=== PATIENT | male | born 1950 | race Caucasian/White ===

== ENCOUNTER 2016-10-02 18:53 | Observation (INO) | payer MEDICARE, OTHER ==
[2016-10-02] MEDS ORDERED: NITROGLYCERIN 0.4 MG 25 EA TAB SL ONE ×3 (19:24→19:31)
[2016-10-02] MEDS ORDERED: ASPIRIN TABLET 325 MG TAB PO ONE (19:31)
--- NOTE | 2016-10-02 21:21 | ED.PDOC ---
History of Present Illness - General Chief Complaint: Cardiovascular Problem Stated Complaint: palpitations Time Seen by Provider: 10/02/16 19:02 Source: patient Exam Limitations: no limitations - History of Present Illness Initial Comments: the patient is a 66-year-old male presenting to the emergency room secondary to symptoms of palpitations with concurrent shortness of breath and some mild chest discomfort as well when it was at its worst. He has a long- standing history of atrial fibrillation with intermittent episodes of RVR and atrial flutter. He has had shortness of breath and chest discomfort with these episodes in the past. He recently had his Cardizem dose increased. He is followed by Dr. Faith. He was not having any symptoms prior. He has responded well historically to calcium channel blockers. He has never had to be electrically cardioverted according to him. Timing/Duration: 1-3 hours Severity: moderate Improving Factors: immobilization Worsening Factors: movement Associated Symptoms: chest pain, shortness of breath Allergies/Adverse Reactions: Allergies Penicillins Allergy (Verified 08/03/16 15:21) Rash Home Medications: Ambulatory Orders Aspirin [Baby Aspirin] 81 mg PO BEDTIME 10/03/14 Atorvastatin Calcium [Lipitor] 80 mg PO BEDTIME 10/03/14 Sotalol HCl [Betapace] 80 mg PO BID 10/03/14 Metformin HCl 500 mg PO DAILY 06/18/16 Diltiazem HCl Coated Beads [Cardizem Cd] 180 mg PO DAILY #30 cap 06/19/16 Lisinopril 2.5 mg PO BID 08/03/16 Eloquist 10/02/16 Review of Systems - Review of Systems Constitutional: States: malaise EENTM: States: no symptoms reported Respiratory: States: short of breath Cardiology: States: chest pain - mild, palpitations Gastrointestinal/Abdominal: States: no symptoms reported Genitourinary: States: no symptoms reported Musculoskeletal: States: no symptoms reported Skin: States: no symptoms reported Neurological: States: no symptoms reported Endocrine: States: no symptoms reported All other Systems: No Change from Baseline Past Medical History (General) - Patient Medical History Hx Seizures: No Hx Stroke: No Hx Dementia: No Hx Asthma: No Hx of COPD: No Hx Cardiac Disorders: Yes - high cholesterol, a-fib Hx Congestive Heart Failure: No Hx Pacemaker: No Hx Hypertension: Yes Hx Thyroid Disease: No Hx Diabetes: Yes Hx Gastroesophageal Reflux: No Hx Renal Disease: No Hx Cancer: No Hx of HIV: No Hx Hepatitis C: No Hx MRSA: No Surgical History: appendectomy - Vaccination History Hx Tetanus, Diphtheria Vaccination: Yes Hx Influenza Vaccination: No Hx Pneumococcal Vaccination: Yes - 2013 - Social History Hx Tobacco Use: Yes - Quit 2012 Hx Alcohol Use: No Hx Substance Use: No Hx Substance Use Treatment: No Hx Depression: No Hx Physical Abuse: No Hx Emotional Abuse: No - Female History Patient : No Family Medical History - Family History Mother Family History: No Known Living Status: Age at (years of age): 83 Cause of : lack of will to thrive Physical Exam - Physical Exam General Appearance: Alert, Anxious Eye Exam: bilateral normal Ears, Nose, Throat: normal ENT inspection, normal pharynx Neck: full range of motion, supple, normal inspection Respiratory: chest non-tender, lungs clear, normal breath sounds, no respiratory distress, no accessory muscle use Cardiovascular/Chest: normal peripheral pulses, no edema, tachycardia, irregularly irregular Peripheral Pulses: radial,right: 2+, radial,left: 2+ Gastrointestinal/Abdominal: non tender, soft Rectal Exam: deferred Back Exam: normal inspection Extremity: normal range of motion, non-tender, normal inspection, no pedal edema , normal capillary refill Neurologic: alert, normal mood/affect, oriented x 3 Skin Exam: normal color Comments: Vital Signs - 24 hr 10/02/16 10/02/16 10/02/16 18:55 19:07 19:13 Temperature 98.5 F Pulse Rate [ 114 H 118 H Apical] Respiratory 20 Rate Blood Pressure 135/89 [Left Arm] O2 Sat by Pulse 95 95 Oximetry heart rates have slowed down from the 140s to the 90s on average. Chest x-ray shows no overt infiltrate or pneumothorax. Mild cardiomegaly. EKG shows atrial flutter with rapid ventricular rate. There are Q waves in inferior leads as well as significant axis shift from baseline. This EKG is consistent with previous EKG from May. No acute ST segment changes noted in comparison. Laboratory Tests 10/02/16 19:45 WBC 8.8 RBC 4.99 Hgb 14.2 Hct 42.1 MCV 84.4 MCH 28.4 MCHC 33.6 RDW 14.5 Plt Count 181 MPV 8.5 Absolute Neuts (auto) 5.00 Absolute Lymphs (auto) 2.70 Absolute Monos (auto) 0.80 Absolute Eos (auto) 0.20 Absolute Basos (auto) 0.10 Neutrophils % 57.1 Lymphocytes % 30.3 Monocytes % 9.3 H Eosinophils % 2.6 Basophils % 0.7 PT 11.7 INR 1.040 PTT (SP) 30.0 Sodium 140 Potassium 3.4 L Chloride 108 Carbon Dioxide 24 Anion Gap 11.4 L BUN 13 Creatinine 0.89 BUN/Creatinine Ratio 14.6 Random Glucose 161 H Serum Osmolality 283.0 Calcium 8.6 Magnesium 2.0 Total Bilirubin 0.5 AST 22 ALT 33 Alkaline Phosphatase 96 Creatine Kinase 37 L CK-MB (CK-2) 2.5 CK-MB (CK-2) % Not Reportable Troponin I 0.02 B-Natriuretic Peptide 282.0 H* Serum Total Protein 6.4 Albumin 3.6 Globulin 2.8 Albumin/Globulin Ratio 1.3 Progress - Progress Progress: 10/02/16 21:22 the patient is a 66-year-old male presenting with atrial flutter with rapid ventricular rate. This is a recurrent issue for this patient and he was dosed with IV Cardizem along with his evening doses of oral Cardizem and sotalol. Rate control has significantly improved. He is still in atrial flutter at this time and will be admitted for further management. Symptoms of shortness of breath and chest discomfort have resolved. Will need further cardiac enzymes checked. Continue oxygen for now. Holding on more potent blood thinners secondary to history of GI bleed in the past. Critical care time on this patient spent excluding other billable procedures 30 minutes. Departure - Departure Clinical Impression: Atrial flutter with rapid ventricular response Disposition: Admit Patient Home Medications: Ambulatory Orders Aspirin [Baby Aspirin] 81 mg PO BEDTIME 10/03/14 Atorvastatin Calcium [Lipitor] 80 mg PO BEDTIME 10/03/14 Sotalol HCl [Betapace] 80 mg PO BID 10/03/14 Metformin HCl 500 mg PO DAILY 06/18/16 Diltiazem HCl Coated Beads [Cardizem Cd] 180 mg PO DAILY #30 cap 06/19/16 Lisinopril 2.5 mg PO BID 08/03/16 Eloquist 10/02/16 Decision To Admit - Decistion To Admit Decision to Admit Reason: Medical Nature Decision to Admit Date: 10/02/16 Decision to Admit Time: 21:24
--- NOTE | 2016-10-02 21:35 | RAD ---
PROCEDURE: XR CHEST 1 VIEW HISTORY: afib with rvr COMPARISON: 08/03/2016 TECHNIQUE: Single projection of the chest was done. FINDINGS: The lung anderson are well inflated . There are no discrete airspace infiltrates, pneumothoraces or pleural effusions. The pulmonary vascularity is normal. The cardiomediastinal contour is unremarkable . IMPRESSION: There is no acute pleural-parenchymal process seen in the imaged lung anderson. 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
[2016-10-02] MEDS ORDERED: diltiaZEM HCL CD 180 MG CAP PO ONE (21:41)
[2016-10-02] MEDS ORDERED: SOTALOL 80 MG TAB PO ONE (21:41)
[2016-10-02] MEDS ORDERED: SODIUM CHLORIDE 0.9% (FLUSH) 10 ML SYG IV PRN (21:46)
[2016-10-02] MEDS ORDERED: MAGNESIUM HYDROXIDE 30 ML UD PO PRN (21:46)
[2016-10-02] MEDS ORDERED: TEMAZEPAM 15 MG CAP PO PRN (21:46)
[2016-10-02] MEDS ORDERED: HYDROcodone 5MG/APAP 325MG 1 EA TAB PO PRN (21:46)
[2016-10-02] MEDS ORDERED: GLUCAGON INJ 1 MG VIAL SUBCU PRN (21:57)
[2016-10-02] MEDS ORDERED: DEXTROSE 50% 25 GM/50 ML SYG IV PRN (21:57)
[2016-10-02] MEDS ORDERED: POTASSIUM CHLORIDE 10 MEQ TAB PO SCH (22:00)
[2016-10-02] MEDS ORDERED: IV SET AND CAP CHANGE INJ INJ SCH (22:00)
--- NOTE | 2016-10-02 22:49 | HP ---
HISTORY OF PRESENT ILLNESS: This 66-year-old, white male is placed in the hospital for overnight observation because of an acute exacerbation of a rapid atrial fibrillation with associated shortness of breath and chest tightness, feeling like something was going to explode in his chest. He was given nitroglycerin in the Emergency Room which resulted in fairly significant headache, but the discomfort in his chest also significantly improved as the pulse was reduced in speed from 140 down to less than 100 with Cardizem IV. His oral treatment program was initiated again at the h.s. dose and will be observed overnight with modification of the program in an attempt to prevent this from happening. He has had increasing episodes of rapid atrial fibrillation. Most recently he has had an admission to the hospital on . He was in the Emergency Room with rapid atrial fibrillation on 08/03/16 and required Cardizem infusion and was sent to [facility]. This evenings episode occurred spontaneously at home and now he is feeling better after initial rate control, but will require ongoing medication and monitoring to prevent any unforeseen consequences or complications. He was placed in the hospital overnight for observation on telemetry with increased dosings of oral Cardizem and continued observation. PAST MEDICAL HISTORY: 1. Recurring atrial fibrillation with rapid ventricular response and/or atrial flutter. 2. Coronary artery disease. 3. Hyperlipidemia. 4. Hypertension. 5. Myocardial infarction on two occasions. 6. History of benign prostatic hypertrophy. 7. Diabetes mellitus, type 2, on oral therapy. 8. History of negative upper endoscopy with GI bleeding noted. PAST SURGICAL HISTORY: 1. Appendectomy. 2. Denture removal. 3. Coronary artery stenting placed with 5 stents with his last echocardiogram in 2013 showing an ejection fraction of 50% with mild left atrial enlargement. MEDICATIONS: Please refer to nursing notes for a list of verified medications taken by the patient at home. ALLERGIES: PENICILLIN. CODE STATUS: Full code. SOCIAL HISTORY: He is retired. He is and lives in [place]. He quit smoking in 2010 and quit drinking also in 2010. REVIEW OF SYSTEMS: GENERAL: No significant weight change, fever or chills. HEENT: No significant hearing or visual disturbances. RESPIRATORY: Shortness of breath noted with his current episode of rapid pulse. CARDIAC: History of recurring atrial flutter/fibrillation with his current episode still being treated in the Emergency Room. GASTROINTESTINAL: No nausea, vomiting, diarrhea noted. NEUROLOGIC: Headache after the nitroglycerin. Otherwise, no focal weakness. PHYSICAL EXAMINATION: VITAL SIGNS: Afebrile. Pulse up to 140s, down to 90 after Cardizem. Blood pressure 135/89. Room air saturation 95%. Weight 101.15 kg. GENERAL: The patient is in no acute distress, able to talk quite clearly. His is also present to assist with the history. The patient is lying on his left side in the bed. He is feeling somewhat improved as his pulse has returned to a slower rate. HEENT: Unremarkable. NECK: Supple. LUNGS: Generally clear. HEART: Tones have irregularities with rate ranging between 140s down to under 100. Atrial flutter noted on EKG. No significant murmurs or gallops evident. ABDOMEN: Soft with no organomegaly, masses or tenderness. EXTREMITIES: Fairly well formed with good muscle tone. NEUROLOGIC: No focal neurologic deficits. The patient is awake, alert, oriented and communicative. LABORATORY: Hemoglobin 14.2, white count 8,800. INR 1.04 on Eliquis. Chemistries show potassium 3.4 with potassium supplements to be initiated. Creatinine 0.89, BUN 13, glucose slightly elevated at 161, liver enzymes normal. Troponin 0.02. Beta natriuretic peptide slightly elevated at 282. Albumin 3.6. Urinalysis pending. No cultures obtained. Chest x-ray shows no acute findings. EKG shows significant rapid atrial flutter with rapid ventricular response. ASSESSMENT: 1. Chronic atrial fibrillation with an acute exacerbation with rapid ventricular response with rates in the 140s, symptomatic with chest discomfort and dyspnea. 2. Hypokalemia, requiring supplementation. 3. Diabetes mellitus, type 2, on oral therapy. 4. History of coronary artery disease, must rule out underlying ischemic coronary disease. 5. History of hyperlipidemia. 6. History of benign prostatic hypertrophy. PLAN: The patient will be observed overnight with increased Cardizem CD to 120 b.i.d. instead of 180 at h.s. His atrial flutter appears to primarily start at a similar time which is before he takes his evening dose, so we will split the dose into 120 twice daily with a total of 240 and observe. Continue with Eliquis 5 mg b.i.d. and Sotalol 80 mg b.i.d. with his evening dose being given while still in the Emergency Room. Observe closely and reevaluate in the morning. Anticipate sending home with followup with Dr. Clarke and Dr. Galo if stable. #[id number] [facility]
[2016-10-02] MEDS: LEVALBUTEROL NEBS 0.63 MG/3 ML VIAL INH SCH (23:42)
[2016-10-02] MEDS: APIXABAN 2.5 MG TAB PO SCH (23:42)
[2016-10-02] MEDS: SODIUM CHLORIDE 0.9% (FLUSH) 10 ML SYG IV SCH (23:43)
[2016-10-03] MEDS ORDERED: OMEPRAZOLE CAP 20 MG CAP PO SCH (06:30)
[2016-10-03] MEDS ORDERED: INSULIN LISPRO 100 UNITS/ML PEN SUBCU SCH (07:00)
[2016-10-03] MEDS ORDERED: SODIUM CHLORIDE 0.9% 10 ML VIAL IV PRN (07:56)
[2016-10-03] MEDS: LEVALBUTEROL NEBS 0.63 MG/3 ML VIAL INH SCH (08:24)
[2016-10-03] MEDS ORDERED: LISINOPRIL 5 MG TAB PO SCH (09:00)
[2016-10-03] MEDS ORDERED: POTASSIUM CHLORIDE 10 MEQ TAB PO SCH ×2 (09:00→17:00)
[2016-10-03] MEDS ORDERED: SOTALOL 80 MG TAB PO SCH ×2 (09:00)
[2016-10-03] MEDS ORDERED: diltiaZEM HCL CD 180 MG CAP PO SCH (09:00)
[2016-10-03] MEDS ORDERED: ASPIRIN (CHEWABLE) 81 MG TAB PO SCH (09:00)
[2016-10-03] MEDS: APIXABAN 2.5 MG TAB PO SCH (09:32)
[2016-10-03] MEDS: SODIUM CHLORIDE 0.9% (FLUSH) 10 ML SYG IV SCH (09:39)
--- NOTE | 2016-10-03 11:20 | DS ---
DISCHARGE DIAGNOSIS: 1. Chronic atrial fibrillation/flutter with an acute exacerbation with rapid ventricular response with rates in the 140s, symptomatic with chest discomfort and dyspnea. 2. Hypokalemia, showing improvement with supplementation. 3. Chronic diabetes mellitus on oral therapy. 4. History of coronary artery disease, must rule out underlying ischemic coronary disease with slight elevation in troponin noted with observation in cardiology clinic to continue. 5. History of hyperlipidemia. 6. History of benign prostatic hypertrophy. HISTORY OF PRESENT ILLNESS: This 66-year-old, white male was placed in the hospital for overnight observation because of acute onset of rapid pulse with associated weakness and mild chest discomfort. He was found in the Emergency Room to have an acute atrial flutter/fibrillation with rapid ventricular response responding to Cardizem IV and subsequently restarted on his oral Cardizem and Sotalol treatment program. His Cardizem was up to 180 mg once a day at bedtime, which was changed to 120 mg twice a day to help prevent significant medication justin possibly contributing to some of his symptom complex. The patient is being followed closely by [facility] and followup with continue. LABORATORY: White count normal at 8,800, hemoglobin 14.2. INR 1.04 on Eliquis. Chemistries show potassium 3.4 after supplementation up to 4.6. BUN 13, creatinine 0.89. Glucose 134 on discharge with hemoglobin A1c 6.7. Calcium 8.8. Liver enzymes normal. Troponin 0.02 on admission and 0.06 the next morning with CK remaining normal. Beta natriuretic peptide slightly elevated at 282. Albumin 3.6, TSH 0.96. No cultures obtained. Chest x-ray in the Emergency Room showed no acute process. EKG did show rapid ventricular response with an underlying atrial flutter/fibrillation pattern. HOSPITAL COURSE: The patient was feeling much improved at the time of discharge and was very willing to continue with outpatient followup and management. When his pulse is fast, it makes him feel poorly and his rate control is a little better with the alteration in his medication program with close cardiac followup necessary. Condition discussed with Dr. Faith in [place] before discharge. PLAN: Discharge home with followup with Dr. Faith next 10/10/16, at 2 PM. He is to see Dr. Clarke afterwards in followup as well. Observe his pulse rate closely. Change the Cardizem CD from 180 mg at bedtime to a new prescription of 120 mg twice daily. Return if not improving. Continue other home medications. Close followup with Dr. Clarke necessary. #[id number] [facility]
[2016-10-03 12:23] VITALS: BP 136/71; TEMP 97.5; O2SAT 94
--- NOTE | 2016-10-16 00:10 | RAD ---
PROCEDURE: XR CHEST 1 VIEW HISTORY: afib with rvr COMPARISON: 08/03/2016 TECHNIQUE: Single projection of the chest was done. FINDINGS: The lung anderson are well inflated . There are no discrete airspace infiltrates, pneumothoraces or pleural effusions. The pulmonary vascularity is normal. The cardiomediastinal contour is unremarkable . IMPRESSION: There is no acute pleural-parenchymal process seen in the imaged lung anderson. 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
== END 2016-10-03 11:15 | disposition home or self-care (01) ==
LOC: ER 18:53 → MS 22:48
PROVIDERS: ADMIT Emergency Medicine; ATTEND Emergency Medicine
DX: I48.2 Chronic atrial fibrillation (principal); I48.92 Unspecified atrial flutter; R06.02 Shortness of breath; E87.6 Hypokalemia; E11.9 Type 2 diabetes mellitus without complications; I25.10 Atherosclerotic heart disease of native coronary artery without angina pectoris; E78.5 Hyperlipidemia, unspecified; N40.0 Benign prostatic hyperplasia without lower urinary tract symptoms; I25.2 Old myocardial infarction; I51.7 Cardiomegaly; Z95.5 Presence of coronary angioplasty implant and graft; Z79.84 Long term (current) use of oral hypoglycemic drugs; Z79.01 Long term (current) use of anticoagulants; Z79.82 Long term (current) use of aspirin; Z79.899 Other long term (current) drug therapy; Z88.0 Allergy status to penicillin; Z87.891 Personal history of nicotine dependence; Z90.49 Acquired absence of other specified parts of digestive tract
CPT/HCPCS: 36415; 36416 ×3; 71010; 80048; 80053; 81001; 82550 ×2; 82553 ×2; 82948 ×3; 83036; 83735; 83880; 84443; 84484 ×2; 85025; 85610; 85730; 93005; 94640 ×2; 94760; 96374; 99284; J7614 ×2

== ENCOUNTER 2016-11-05 23:55 | Emergency (ER) | payer MEDICARE, OTHER ==
[2016-11-06 00:50] VITALS: TEMP 97.5
--- NOTE | 2016-11-06 01:36 | RAD ---
Clinical History : Afib with RVR , MAIN Exam : Portable AP view of the chest 11/06/2016 12:31 AM CDT Comparisons : Portable AP view of the chest October 02, 2016 Findings : The lungs are clear without focal consolidation or pleural effusion. The heart is normal in size. The mediastinal contours are normal in appearance. There are vascular calcifications along the aortic arch. The thoracic spine is age appropriate. The shoulders are unremarkable. Limited evaluation of the upper abdomen demonstrates no gross abnormalities. Impression: No acute cardiopulmonary disease (stable appearing chest). Electronically signed by: Wero Correa MD 11/06/2016 1:36 AM CDT
--- NOTE | 2016-11-06 02:25 | ED.PDOC ---
History of Present Illness - General Chief Complaint: Cardiovascular Problem Stated Complaint: A-Fib Time Seen by Provider: 11/06/16 00:30 Source: patient, RN notes reviewed, Vital Signs reviewed Exam Limitations: no limitations - History of Present Illness Initial Comments: Patient is a 66 y/o male who has a history of Afib. He was hospitalized five weeks ago for RVR. His Sotalol was changed to BID and he did well until this evening when his heart rate increased again. He waited and relaxed to see if it would come down, however after 2 hours it had not so he came in. He denies any chest pain, has very mild SOB. No nausea, no diaphoresis. Timing/Duration: 1-3 hours Severity: moderate Improving Factors: nothing Worsening Factors: nothing Associated Symptoms: shortness of breath Allergies/Adverse Reactions: Allergies Penicillins Allergy (Verified 08/03/16 15:21) Rash Home Medications: Ambulatory Orders Aspirin [Baby Aspirin] 325 mg PO BEDTIME 10/03/14 Atorvastatin Calcium [Lipitor] 80 mg PO BEDTIME 10/03/14 Sotalol HCl [Betapace] 80 mg PO BID 10/03/14 Metformin HCl 500 mg PO DAILY 06/18/16 Lisinopril 20 mg PO BID 08/03/16 Apixaban [Eliquis] 5 mg PO BID 10/02/16 diltiaZEM HCL CD [Cardizem Cd] 120 mg PO BID #60 cap 10/03/16 Sotalol HCl 120 mg PO DAILY #60 tab 11/06/16 Review of Systems - Review of Systems Constitutional: States: no symptoms reported EENTM: States: no symptoms reported Respiratory: States: short of breath Cardiology: States: palpitations Gastrointestinal/Abdominal: States: no symptoms reported Genitourinary: States: no symptoms reported Musculoskeletal: States: no symptoms reported Skin: States: no symptoms reported Neurological: States: no symptoms reported Endocrine: States: no symptoms reported Hematologic/Lymphatic: States: easy bleeding, easy bruising Past Medical History (General) - Patient Medical History Hx Seizures: No Hx Stroke: No Hx Dementia: No Hx Asthma: No Hx of COPD: No Hx Cardiac Disorders: No Hx Congestive Heart Failure: No Hx Pacemaker: No Hx Hypertension: Yes Hx Thyroid Disease: No Hx Diabetes: Yes Hx Gastroesophageal Reflux: No Hx Renal Disease: No Hx Cancer: No Hx of HIV: No Hx Hepatitis C: No Hx MRSA: No Surgical History: appendectomy, tonsillectomy - Vaccination History Hx Tetanus, Diphtheria Vaccination: No Hx Influenza Vaccination: No Hx Pneumococcal Vaccination: No Immunizations Up to Date: Yes - Social History Hx Tobacco Use: Yes Hx Chewing Tobacco Use: No Hx Alcohol Use: No Hx Substance Use: No Hx Substance Use Treatment: No Hx Depression: No Feels Threatened In Home Enviroment: No Feels Threatened In a Relationship: No Hx Physical Abuse: No Hx Emotional Abuse: No Hx Suspected Abuse: No - Activities of Daily Living Hospice Agency (if applicable):: None - Female History Patient : No Family Medical History - Family History Mother Family History: No Known Living Status: Age at (years of age): 83 Cause of : lack of will to thrive Physical Exam - Physical Exam General Appearance: Alert, Comfortable, No apparent distress Ears, Nose, Throat: hearing grossly normal, normal ENT inspection Respiratory: lungs clear, normal breath sounds, no respiratory distress, no accessory muscle use Cardiovascular/Chest: no edema, no gallop, no murmur, irregularly irregular Gastrointestinal/Abdominal: normal bowel sounds, non tender, soft, no organomegaly Extremity: non-tender, normal inspection, no pedal edema, no calf tenderness Neurologic: alert, normal mood/affect, oriented x 3 Skin Exam: normal color, warm/dry Progress - Progress Progress: 11/06/16 02:31 Patient was given Cardizem 10 mg IV which decreased his rate to the 80s and 90s. Dr. Marroquin (electrical high tension tester for Dr. Faith) was called to get guidance on outpatient vs. inpatient treatment. He opted to increase Patient's Sotolol to 120 mg PO BID. Patient is to call Dr. Faith's office today and make an appointment this week. - Results/Orders Results/Orders: 11/06/16 11/06/16 11/06/16 00:05 01:01 01:53 Temperature 97.5 F L Pulse Rate [ 138 H 88 91 H monitor] Respiratory 32 H 20 18 Rate Blood Pressure 129/73 118/83 110/60 [Left Arm] O2 Sat by Pulse 93 L 94 L 91 L Oximetry Laboratory Results WBC 8.1 K/mm3 (4.8-10.8) 11/06/16 00:45 RBC 5.00 M/mm3 (4.70-6.10) 11/06/16 00:45 Hgb 14.1 gm/dL (14.0-18.0) 11/06/16 00:45 Hct 42.1 % (42.0-52.0) 11/06/16 00:45 MCV 84.2 fl (80.0-94.0) 11/06/16 00:45 MCH 28.2 pg (27.0-31.0) 11/06/16 00:45 MCHC 33.5 g/dL (33.0-37.0) 11/06/16 00:45 RDW 15.0 % (11.5-14.5) H 11/06/16 00:45 Plt Count 196 K/mm3 (130-400) 11/06/16 00:45 MPV 8.3 fl (7.40-10.4) 11/06/16 00:45 Absolute Neuts (auto) 4.40 K/uL (1.8-6.8) 11/06/16 00:45 Absolute Lymphs (auto) 2.70 K/uL (1.0-3.4) 11/06/16 00:45 Absolute Monos (auto) 0.80 K/uL (0.2-0.8) 11/06/16 00:45 Absolute Eos (auto) 0.20 K/uL (0.0-0.4) 11/06/16 00:45 Absolute Basos (auto) 0.10 K/uL (0.0-0.1) 11/06/16 00:45 Neutrophils % 53.8 % (42.0-78.0) 11/06/16 00:45 Lymphocytes % 32.7 % (20.0-50.0) 11/06/16 00:45 Monocytes % 9.9 % (2.0-9.0) H 11/06/16 00:45 Eosinophils % 2.3 % (1.0-5.0) 11/06/16 00:45 Basophils % 1.3 % (0.0-2.0) 11/06/16 00:45 PT 15.3 SECONDS (9.4-12.5) H 11/06/16 00:45 INR 1.360 11/06/16 00:45 PTT (SP) 33.8 SECONDS (25.1-36.5) 11/06/16 00:45 Sodium 140 mmol/L (135-145) 11/06/16 00:45 Potassium 3.7 mmol/L (3.6-5.0) 11/06/16 00:45 Chloride 109 mmol/L (101-111) 11/06/16 00:45 Carbon Dioxide 21 mmol/L (21-31) 11/06/16 00:45 Anion Gap 13.7 (12-18) 11/06/16 00:45 BUN 17 mg/dL (7-18) 11/06/16 00:45 Creatinine 0.83 mg/dL (0.6-1.3) 11/06/16 00:45 BUN/Creatinine Ratio 20.5 (10-20) H 11/06/16 00:45 Random Glucose 172 mg/dL (70-105) H 11/06/16 00:45 Serum Osmolality 285.0 mOsm/L (275-295) 11/06/16 00:45 Calcium 8.9 mg/dL (8.4-10.2) 11/06/16 00:45 Magnesium 2.2 mg/dL (1.8-2.5) 11/06/16 00:45 Creatine Kinase 55 IU/L (38-174) 11/06/16 00:45 CK-MB (CK-2) 3.9 ng/mL (0.0-4.4) 11/06/16 00:45 CK-MB (CK-2) % Not Reportable 11/06/16 00:45 Troponin I 0.02 ng/mL (0.01-0.05) 11/06/16 00:45 B-Natriuretic Peptide 227.0 pg/ml (0-100) H* 11/06/16 00:45 - EKG/XRAY/CT EKG: Atrial, Fibrillation - 129 bpm, Changed from - 10/02/2011 Comments: Strang NML, irregular intervals--Afib with RVR XRAY: chest - No acute process - Consult/PCP Time Called: 02:20 Consult/PCP: Dr. Marroquin Consult Reason/Comments: See Progress Departure - Departure Clinical Impression: Atrial fibrillation with RVR Time of Disposition: 02:37 Disposition: Discharge to Home or Self Care Condition: Good Departure Forms: ED Discharge - Pt. Copy, Patient Portal Self Enrollment Diet: resume usual diet Referrals: MIRTA FAITH [Referring] - 1-2 Weeks Prescriptions: Sotalol HCl 120 mg PO DAILY #60 tab Home Medications: Ambulatory Orders Aspirin [Baby Aspirin] 325 mg PO BEDTIME 10/03/14 Atorvastatin Calcium [Lipitor] 80 mg PO BEDTIME 10/03/14 Sotalol HCl [Betapace] 80 mg PO BID 10/03/14 Metformin HCl 500 mg PO DAILY 06/18/16 Lisinopril 20 mg PO BID 08/03/16 Apixaban [Eliquis] 5 mg PO BID 10/02/16 diltiaZEM HCL CD [Cardizem Cd] 120 mg PO BID #60 cap 10/03/16 Sotalol HCl 120 mg PO DAILY #60 tab 11/06/16 Additional Instructions: Follow up in ED for ANY chest pain or shortness of breath.
[2016-11-06 02:56] VITALS: BP 139/71; O2SAT 93
== END 2016-11-06 02:55 | disposition home or self-care (01) ==
LOC: ER 23:55
DX: I48.91 Unspecified atrial fibrillation (principal); I10 Essential (primary) hypertension; E11.9 Type 2 diabetes mellitus without complications; Z87.891 Personal history of nicotine dependence; Z79.899 Other long term (current) drug therapy; Z79.82 Long term (current) use of aspirin; Z88.0 Allergy status to penicillin

== ENCOUNTER 2016-11-16 23:15 | Emergency (ER) | payer MEDICARE, OTHER ==
[2016-11-16] MEDS ORDERED: NITROGLYCERIN 0.4 MG 25 EA TAB SL ONE (23:42)
[2016-11-16] MEDS ORDERED: SODIUM CHLORIDE 0.9% (FLUSH) 10 ML SYG IV PRN (23:42)
--- NOTE | 2016-11-16 23:42 | ED.PDOC ---
History of Present Illness - General Chief Complaint: Chest Pain/VT Stated Complaint: chest pressure Time Seen by Provider: 11/16/16 23:41 Source: patient, Vital Signs reviewed Exam Limitations: no limitations - History of Present Illness Initial Comments: Mr. Myra Motley 66 y/o male with history of cad,afib dm2 stated he was watching tv and stood felt pressure,discomfort and tightness on his chest feels heart was racing.He stated took ASA in am and his regular nightime medicine for his heart.. Timing/Duration: 1 hour Severity/Quality: moderate, pressure, tightness Location: central Chest Pain Radiation: no radiation Activities at Onset: rest Prior Chest Pain/Cardiac Workup: cardiac cath, echocardiography, stress test Improving Factors: nothing Worsening Factors: nothing Nitro Today/Relief: provided by ED, mild relief Aspirin Treatment Today: 325 mg x 1, provided at home Associated Symptoms: shortness of breath Allergies/Adverse Reactions: Allergies Penicillins Allergy (Verified 11/16/16 23:44) Rash Home Medications: Ambulatory Orders Aspirin [Baby Aspirin] 325 mg PO BEDTIME 10/03/14 Atorvastatin Calcium [Lipitor] 80 mg PO BEDTIME 10/03/14 Sotalol HCl [Betapace] 80 mg PO BID 10/03/14 Metformin HCl 500 mg PO DAILY 06/18/16 Lisinopril 20 mg PO BID 08/03/16 Apixaban [Eliquis] 5 mg PO BID 10/02/16 diltiaZEM HCL CD [Cardizem Cd] 120 mg PO BID #60 cap 10/03/16 Sotalol HCl 120 mg PO DAILY #60 tab 11/06/16 Review of Systems - Review of Systems Constitutional: States: no symptoms reported EENTM: States: no symptoms reported Respiratory: States: see HPI, short of breath Cardiology: States: see HPI Gastrointestinal/Abdominal: States: no symptoms reported Genitourinary: States: no symptoms reported Musculoskeletal: States: no symptoms reported Skin: States: no symptoms reported Neurological: States: no symptoms reported Endocrine: States: no symptoms reported Hematologic/Lymphatic: States: no symptoms reported Past Medical History (General) - Patient Medical History Hx Seizures: No Hx Stroke: No Hx Dementia: No Hx Asthma: No Hx of COPD: No Hx Cardiac Disorders: Yes - afib,mi x2 Hx Congestive Heart Failure: No Hx Pacemaker: No Hx Hypertension: Yes Hx Thyroid Disease: No Hx Diabetes: Yes Hx Gastroesophageal Reflux: No Hx Renal Disease: No Hx Cancer: No Hx of HIV: No Hx Hepatitis C: No Hx MRSA: No Hx Other PMH: Yes - melena Surgical History: appendectomy, other - cardiac cath/stent,colonoscopy egd - Vaccination History Hx Tetanus, Diphtheria Vaccination: No Hx Influenza Vaccination: No Hx Pneumococcal Vaccination: No - Social History Hx Tobacco Use: Yes Hx Chewing Tobacco Use: No Hx Alcohol Use: No Hx Substance Use: No Hx Substance Use Treatment: No Hx Depression: No Hx Physical Abuse: No Hx Emotional Abuse: No Hx Suspected Abuse: No - Female History Patient : No Family Medical History - Family History Mother Family History: No Known Living Status: Age at (years of age): 84 Cause of : lack of will to thrive Hx Family Hypertension: Yes - parents Hx Cardiac Disease: Yes - dad Hx Family;Other: dad-PARKINSONS DISEASE Physical Exam - Physical Exam General Appearance: Alert, Comfortable, No apparent distress Eyes, Ears, Nose, Throat Exam: PERRL/EOMI, normal ENT inspection, TMs normal, pharynx normal Neck: non-tender, full range of motion, supple, normal inspection Respiratory: chest non-tender, lungs clear, normal breath sounds, no respiratory distress, no accessory muscle use Cardiovascular/Chest: no gallop, no JVD, no murmur, irregularly irregular Peripheral Pulses: radial,right: 2+, radial,left: 2+ Gastrointestinal/Abdominal: normal bowel sounds, non tender, soft, other - obese Extremity: normal range of motion, non-tender, normal inspection Neurologic: no motor/sensory deficits, alert, normal mood/affect, oriented x 3 Skin Exam: normal color, warm/dry Lymphatic: no adenopathy Progress - Results/Orders Results/Orders: 11/16/16 23:42 Sodium Chloride 0.9% (Flush) [Saline Flush Syringe] 10 ml IV PRN PRN 11/16/16 23:44 IV Care:Saline Lock per Protoc QSHIFT Telemetry .ONCE EKG Stat Pulse Ox Stat Pulse Oximetry Assessment DAILY Laboratory Results WBC 8.2 K/mm3 (4.8-10.8) 11/16/16 23:44 RBC 5.25 M/mm3 (4.70-6.10) 11/16/16 23:44 Hgb 14.8 gm/dL (14.0-18.0) 11/16/16 23:44 Hct 44.4 % (42.0-52.0) 11/16/16 23:44 MCV 84.5 fl (80.0-94.0) 11/16/16 23:44 MCH 28.1 pg (27.0-31.0) 11/16/16 23:44 MCHC 33.4 g/dL (33.0-37.0) 11/16/16 23:44 RDW 15.1 % (11.5-14.5) H 11/16/16 23:44 Plt Count 212 K/mm3 (130-400) 11/16/16 23:44 MPV 8.9 fl (7.40-10.4) 11/16/16 23:44 Absolute Neuts (auto) 4.40 K/uL (1.8-6.8) 11/16/16 23:44 Absolute Lymphs (auto) 2.70 K/uL (1.0-3.4) 11/16/16 23:44 Absolute Monos (auto) 0.80 K/uL (0.2-0.8) 11/16/16 23:44 Absolute Eos (auto) 0.20 K/uL (0.0-0.4) 11/16/16 23:44 Absolute Basos (auto) 0.10 K/uL (0.0-0.1) 11/16/16 23:44 Neutrophils % 54.0 % (42.0-78.0) 11/16/16 23:44 Lymphocytes % 32.5 % (20.0-50.0) 11/16/16 23:44 Monocytes % 10.1 % (2.0-9.0) H 11/16/16 23:44 Eosinophils % 2.4 % (1.0-5.0) 11/16/16 23:44 Basophils % 1.0 % (0.0-2.0) 11/16/16 23:44 PT 11.8 SECONDS (9.4-12.5) 11/16/16 23:44 INR 1.040 11/16/16 23:44 PTT (SP) 32.1 SECONDS (25.1-36.5) 11/16/16 23:44 Sodium 141 mmol/L (135-145) 11/16/16 23:44 Potassium 3.6 mmol/L (3.6-5.0) 11/16/16 23:44 Chloride 109 mmol/L (101-111) 11/16/16 23:44 Carbon Dioxide 23 mmol/L (21-31) 11/16/16 23:44 Anion Gap 12.6 (12-18) 11/16/16 23:44 BUN 12 mg/dL (7-18) 11/16/16 23:44 Creatinine 0.86 mg/dL (0.6-1.3) 11/16/16 23:44 BUN/Creatinine Ratio 14.0 (10-20) 11/16/16 23:44 Random Glucose 139 mg/dL (70-105) H 11/16/16 23:44 Serum Osmolality 283.3 mOsm/L (275-295) 11/16/16 23:44 Calcium 9.1 mg/dL (8.4-10.2) 11/16/16 23:44 Magnesium 2.1 mg/dL (1.8-2.5) 11/16/16 23:44 Total Bilirubin 0.5 mg/dL (0.2-1.0) 11/16/16 23:44 Direct Bilirubin 0.1 mg/dL (0-0.2) 11/16/16 23:44 Indirect Bilirubin 0.4 mg/dL (0.2-0.8) 11/16/16 23:44 AST 22 IU/L (10-42) 11/16/16 23:44 ALT 32 IU/L (10-60) 11/16/16 23:44 Alkaline Phosphatase 97 IU/L (42-121) 11/16/16 23:44 Creatine Kinase 47 IU/L (38-174) 11/16/16 23:44 CK-MB (CK-2) 3.9 ng/mL (0.0-4.4) 11/16/16 23:44 CK-MB (CK-2) % Not Reportable 11/16/16 23:44 Troponin I 0.08 ng/mL (0.01-0.05) H* 11/17/16 02:27 B-Natriuretic Peptide 442.0 pg/ml (0-100) H* 11/16/16 23:44 Serum Total Protein 7.6 gm/dL (6.4-8.2) 11/16/16 23:44 Albumin 4.2 g/dl (3.2-5.5) 11/16/16 23:44 Urine Color Yellow (Yellow) 11/16/16 23:55 Urine Appearance Clear (Clear) 11/16/16 23:55 Urine pH 6.5 (4.5-7.8) 11/16/16 23:55 Ur Specific [place] 1.025 (1.005-1.030) 11/16/16 23:55 Urine Protein Negative mg/dL 11/16/16 23:55 Urine Glucose (UA) Negative mg/dL (Negative) 11/16/16 23:55 Urine Ketones Negative mg/dL (NEGATIVE) 11/16/16 23:55 Urine Blood Negative (Negative) 11/16/16 23:55 Urine Nitrite Negative 11/16/16 23:55 Urine Bilirubin Negative (NEGATIVE) 11/16/16 23:55 Urine Urobilinogen 0.2 mg/dL (0.2-1.0) 11/16/16 23:55 Ur Leukocyte Esterase Negative (Negative) 11/16/16 23:55 Urine RBC 0 /hpf 11/16/16 23:55 Urine WBC 0-1 /hpf 11/16/16 23:55 Ur Epithelial Cells 0 /hpf 11/16/16 23:55 Urine Bacteria Rare 11/16/16 23:55 Urine Opiates Screen Negative ng/mL (2000) 11/16/16 23:45 Urine Barbiturates Negative ng/mL (200) 11/16/16 23:45 Ur Phencyclidine Scrn Negative ng/mL (25) 11/16/16 23:45 U Amphetamin/Meth Scrn Negative ng/mL (1000) 11/16/16 23:45 U Benzodiazepines Scrn Negative ng/mL (200) 11/16/16 23:45 U Cocaine Metab Screen Negative ng/mL (300) 11/16/16 23:45 U Cannabinoids Screen Negative ng/mL (50) 11/16/16 23:45 #2 Troponin-0.08 - EKG/XRAY/CT EKG: Atrial, Fibrillation Comments: heart rate 120/minute XRAY: chest - no acute cardiopulmonary disease - Additional EKG/XRAY/Consults XRAY #2: chest - no acute abnormality noted Departure - Departure Clinical Impression: Non-ST elevation VT (NSTEMI), Atrial fibrillation with RVR, Chest discomfort Time of Disposition: 03:27 - D/W Isidro Tariq MD [facility] Disposition: Transfer to Hospital Condition: Fair Departure Forms: ED Discharge - Pt. Copy, Patient Portal Self Enrollment Home Medications: Ambulatory Orders Aspirin [Baby Aspirin] 325 mg PO BEDTIME 10/03/14 Atorvastatin Calcium [Lipitor] 80 mg PO BEDTIME 10/03/14 Sotalol HCl [Betapace] 80 mg PO BID 10/03/14 Metformin HCl 500 mg PO DAILY 06/18/16 Lisinopril 20 mg PO BID 08/03/16 Apixaban [Eliquis] 5 mg PO BID 10/02/16 diltiaZEM HCL CD [Cardizem Cd] 120 mg PO BID #60 cap 10/03/16 Sotalol HCl 120 mg PO DAILY #60 tab 11/06/16
--- NOTE | 2016-11-17 00:10 | RAD ---
EXAM DESCRIPTION: Chest,1 View CLINICAL HISTORY: pain COMPARISON: November 06, 2016 FINDINGS: Cardiac silhouette is within normal limits. EKG leads project over the chest. Aorta is tortuous. There is atherosclerosis. There is no focal parenchymal or pleural disease. There is no acute osseous process visualized. IMPRESSION: No evidence of acute cardiopulmonary disease. Electronically signed by: Darion Reyes MD 11/17/2016 12:09 AM CDT
[2016-11-17 03:12] VITALS: O2SAT 94
[2016-11-17 04:16] VITALS: BP 146/88
[2016-11-17 04:42] VITALS: TEMP 97
== END 2016-11-17 04:42 | disposition short-term general hospital (02) ==
LOC: ER 23:15
DX: I21.4 Non-ST elevation (NSTEMI) myocardial infarction (principal); I48.91 Unspecified atrial fibrillation; I25.2 Old myocardial infarction; I10 Essential (primary) hypertension; E11.9 Type 2 diabetes mellitus without complications; Z88.0 Allergy status to penicillin; Z79.82 Long term (current) use of aspirin; Z79.899 Other long term (current) drug therapy; Z87.891 Personal history of nicotine dependence

== ENCOUNTER → 2016-12-04 | Outpatient (CLI) | payer MEDICARE, OTHER | END | disposition home or self-care (01) | LOC: GMAL 12:16 | PROVIDERS: ATTEND Family Medicine | DX: E55.9 Vitamin D deficiency, unspecified (principal); Z12.5 Encounter for screening for malignant neoplasm of prostate | CPT/HCPCS: 82306; G0103 ==

== ENCOUNTER → 2016-12-19 | Outpatient (CLI) | payer MEDICARE, OTHER | LOC: SL 10:02 | PROVIDERS: ATTEND Family Medicine | DX: G47.33 Obstructive sleep apnea (adult) (pediatric) (principal) ==

== ENCOUNTER → 2017-01-01 | Outpatient (CLI) | payer MEDICARE, OTHER | END | disposition home or self-care (01) | LOC: SL 20:30 | PROVIDERS: ATTEND Family Medicine | DX: G47.33 Obstructive sleep apnea (adult) (pediatric) (principal) ==

== ENCOUNTER → 2017-04-03 | Outpatient (CLI) | payer MEDICARE, OTHER | END | disposition home or self-care (01) | LOC: GMAL 10:57 | PROVIDERS: ATTEND Family Medicine | DX: E55.9 Vitamin D deficiency, unspecified (principal) ==

== ENCOUNTER → 2017-06-27 | Outpatient (CLI) | payer MEDICARE, OTHER | END | disposition home or self-care (01) | LOC: GMAL 10:53 | PROVIDERS: ATTEND Family Medicine | DX: E55.9 Vitamin D deficiency, unspecified (principal) ==

== ENCOUNTER → 2017-07-04 | Outpatient (CLI) | payer MEDICARE, OTHER | END | disposition home or self-care (01) | LOC: GMAL 14:58 | PROVIDERS: ATTEND Family Medicine | DX: E29.1 Testicular hypofunction (principal); R53.82 Chronic fatigue, unspecified ==

== ENCOUNTER 2017-10-26 10:08 | Emergency (ER) | payer MEDICARE, OTHER ==
[2017-10-26 10:28] VITALS: TEMP 98.7
--- NOTE | 2017-10-26 10:57 | ED.PDOC ---
History of Present Illness - General Chief Complaint: General Stated Complaint: fever, body aches,constipation Time Seen by Provider: 10/26/17 10:16 Source: patient Exam Limitations: no limitations - History of Present Illness Initial Comments: Patient presents with general body aches. He also says that he has not had a bowel movement in two days. His last bowel movement was "normal". He is having trouble starting his urinary stream but denies dysuria. He thinks he had a fever at home but did not measure it. He has been taking tylenol and ibuprofen. No N/V/D. No ST. Has had a productive cough, unknown sputum color, just today. No dyspnea nor chest pain. He has a history of AMI x 3 with stent placement. Last AMI was 2002. No other complaints. Timing/Duration: 24 hours Improving Factors: nothing Worsening Factors: nothing Associated Symptoms: denies symptoms Allergies/Adverse Reactions: Allergies Penicillins Allergy (Verified 11/16/16 23:44) Rash Home Medications: Ambulatory Orders Aspirin [Baby Aspirin] 325 mg PO BEDTIME 10/03/14 Atorvastatin Calcium [Lipitor] 80 mg PO BEDTIME 10/03/14 Metformin HCl 500 mg PO DAILY 06/18/16 Lisinopril 5 mg PO BID 08/03/16 Apixaban [Eliquis] 5 mg PO BID 10/02/16 Amiodarone HCl 200 mg PO DAILY 10/26/17 Psyllium [Metamucil] 0.52 gm PO DAILY #20 cap 10/26/17 diltiaZEM HCL CD [Cardizem Cd] 180 mg PO BID 10/26/17 Review of Systems - Review of Systems Constitutional: States: see HPI EENTM: States: no symptoms reported Respiratory: States: see HPI Cardiology: States: no symptoms reported Gastrointestinal/Abdominal: States: see HPI Genitourinary: States: see HPI Musculoskeletal: States: no symptoms reported Skin: States: no symptoms reported Neurological: States: no symptoms reported Endocrine: States: no symptoms reported Hematologic/Lymphatic: States: no symptoms reported Past Medical History (General) - Patient Medical History Hx Seizures: No Hx Stroke: No Hx Dementia: No Hx Asthma: No Hx of COPD: No Hx Cardiac Disorders: Yes - Atrial fib,DC Hx Congestive Heart Failure: No Hx Pacemaker: No Hx Hypertension: Yes Hx Thyroid Disease: No Hx Diabetes: Yes Hx Gastroesophageal Reflux: No Hx Renal Disease: No Hx Cancer: No Hx of HIV: No Hx Hepatitis C: No Hx MRSA: No Surgical History: appendectomy - Vaccination History Hx Tetanus, Diphtheria Vaccination: No Hx Influenza Vaccination: No Hx Pneumococcal Vaccination: Yes - Social History Hx Tobacco Use: Yes Hx Chewing Tobacco Use: No Hx Alcohol Use: No Hx Substance Use: No Hx Substance Use Treatment: No Hx Depression: No Hx Physical Abuse: No Hx Emotional Abuse: No Hx Suspected Abuse: No - Female History Patient : No Family Medical History - Family History Mother Family History: No Known Living Status: Age at (years of age): 83 Cause of : lack of will to thrive Hx Family Hypertension: Yes - parents Hx Cardiac Disease: Yes - dad Hx Family;Other: dad-PARKINSONS DISEASE Physical Exam - Physical Exam General Appearance: Alert Eye Exam: bilateral normal Ears, Nose, Throat: normal ENT inspection Neck: non-tender, full range of motion, supple Respiratory: lungs clear, normal breath sounds, no respiratory distress Cardiovascular/Chest: normal peripheral pulses, regular rate, rhythm, no edema Gastrointestinal/Abdominal: normal bowel sounds, non tender, soft, other - mid- abdominal hernia that self-reduces once bearing down is ceased Back Exam: no CVA tenderness Extremity: normal range of motion, non-tender Neurologic: dipper and drier II-XII nml as tested, no motor/sensory deficits, alert Skin Exam: normal color Lymphatic: no adenopathy Departure - Departure Clinical Impression: Constipation Disposition: Discharge to Home or Self Care Condition: Good Departure Forms: ED Discharge - Pt. Copy, Patient Portal Self Enrollment Diet: other - increase oral fluids Activity: increase activity as tolerated Referrals: Garrick Clarke III, MD [Primary Care Provider] - 1-2 Weeks Prescriptions: Psyllium [Metamucil] 0.52 gm PO DAILY #20 cap Home Medications: Ambulatory Orders Aspirin [Baby Aspirin] 325 mg PO BEDTIME 10/03/14 Atorvastatin Calcium [Lipitor] 80 mg PO BEDTIME 10/03/14 Metformin HCl 500 mg PO DAILY 06/18/16 Lisinopril 5 mg PO BID 08/03/16 Apixaban [Eliquis] 5 mg PO BID 10/02/16 Amiodarone HCl 200 mg PO DAILY 10/26/17 Psyllium [Metamucil] 0.52 gm PO DAILY #20 cap 10/26/17 diltiaZEM HCL CD [Cardizem Cd] 180 mg PO BID 10/26/17
--- NOTE | 2017-10-26 11:29 | RAD ---
EXAM DESCRIPTION: Abdomen Flat Upright CLINICAL HISTORY: 67 years Male, constipation COMPARISON: None. FINDINGS: Upright and supine views of the abdomen show a moderate amount stool and gas scattered throughout the colon. There is a gas-filled segment of nondilated small bowel in the right lower quadrant. Several tiny radiopaque structures projecting over both sides of the abdomen likely are present artifact from superimposed colonic contents. No concerning bone lesion. IMPRESSION: Moderate amount of colonic stool and gas, but no obstruction, pneumoperitoneum or other acute intra-abdominal abnormality. Electronically signed by: Wiley Sal MD 10/26/2017 11:29 AM [facility]
[2017-10-26] MEDS ORDERED: ACETAMINOPHEN 325 MG TAB PO ONE (12:03)
--- NOTE | 2017-10-26 12:38 | RAD ---
EXAM DESCRIPTION: Chest,1 View CLINICAL HISTORY: cough COMPARISON: January 16, 2017 FINDINGS: The heart is slightly enlarged but stable. Mural calcifications are noted in the aortic arch. There is no airspace consolidation or pleural effusion. The bronchovascular markings are within normal limits, and the lungs are not hyperinflated. There is no pneumothorax or acute fracture. IMPRESSION: Stable cardiomegaly and vascular calcifications, otherwise unremarkable exam. Electronically signed by: Wiley Sal MD 10/26/2017 12:37 PM PHONE REPRESENTATIVE
[2017-10-26 13:00] VITALS: BP 109/71; O2SAT 94
== END 2017-10-26 13:00 | disposition home or self-care (01) ==
LOC: ER 10:08
DX: K59.00 Constipation, unspecified (principal); I25.2 Old myocardial infarction; I48.91 Unspecified atrial fibrillation; E11.9 Type 2 diabetes mellitus without complications; Z79.82 Long term (current) use of aspirin; Z79.01 Long term (current) use of anticoagulants

== ENCOUNTER → 2017-11-08 | Outpatient (CLI) | payer MEDICARE, OTHER ==
--- NOTE | 2017-11-09 10:53 | US ---
Thyroid Ultrasound Biopsy CLINICAL INFORMATION: Bilateral thyroid nodules. COMPARISON: Ultrasound thyroid gland 10/26/2017. Please also see addendum report generated on November 09, 2017. TECHNIQUE: Procedure was explained to the patient with risks and benefits. The patient gave verbal and written consent. Sterile preparation draping. 1% xylocaine dermal anesthetic. Sterile ultrasound guidance. A total of 5 passes left lobe superior nodule; 3 needle samplings with a separate 1.5 inch, 25-gauge needle per sample, and 2 aspirations, with a separate 1.5 inch, 25-gauge needle/10-cc syringe set, per aspiration. Each sample was placed on a separate slide and fixed in 95% alcohol container. Saccomanno fluid drawn into aspirate needle and rinse injected into Saccomanno container. Procedure was repeated for the right lobe with same number of aspiration and samplings. Specimens to be sent for pathologic examination at remote facility. . Patient tolerated procedure well, with no immediate complications. Biopsy #: 1 Nodule reference number based on prior diagnostic ultrasound:2. (Please see addendum report.) Maximum size: 2.0 cm Location: left; upper ACR TI-RADS risk category: TR4 (4-6 points) Reason for biopsy: meets ACR TI-RADS criteria. Biopsy #: 2 Nodule reference number based on prior diagnostic ultrasound:1. Maximum size: 1.8 cm Location: right; upper ACR TI-RADS risk category: TR4 (4-6 points) Reason for biopsy: meets ACR TI-RADS criteria Complications: None . IMPRESSION: Successful ultrasound guided fine needle aspiration of bilateral thyroid nodules. Electronically signed by: Donny Mckeon MD 11/09/2017 10:51 AM CDT
== END ==
LOC: US 10:00
PROVIDERS: ATTEND Family Medicine
DX: E04.1 Nontoxic single thyroid nodule (principal)

== ENCOUNTER → 2017-11-09 | Outpatient (CLI) | payer MEDICARE, OTHER ==
--- NOTE | 2017-11-09 17:32 | RAD ---
EXAM DESCRIPTION: Shoulder,Right 2 or More Views CLINICAL HISTORY: SHOULDER PAIN COMPARISON: None Available. TECHNIQUE: 4 views of the right shoulder. FINDINGS: There is in adequate internal rotation but normal external rotation. There is no fracture or dislocation. Normal alignment on transscapular Y view and transaxillary view. There are no significant degenerative changes observed. AC joint appears intact. No focal bone lesion. IMPRESSION: Negative for fracture or dislocation. Electronically signed by: Houston Mullen MD 11/09/2017 5:30 PM CDT
--- NOTE | 2017-11-09 17:33 | RAD ---
EXAM DESCRIPTION: Elbow,Right 3 Views CLINICAL HISTORY: ELBOW PAIN COMPARISON: None Available. TECHNIQUE: AP, Lateral, and Oblique FINDINGS: Three-view right elbow shows no fracture or dislocation. No displacement of the distal humeral fat pads. Mild spurring at the olecranon and coronoid processes. There is no bone lesion. IMPRESSION: Negative for fracture or dislocation. Electronically signed by: Houston Mullen MD 11/09/2017 5:31 PM CDT
== END ==
LOC: RAD 07:43
PROVIDERS: ATTEND Orthopaedic Surgery
DX: M25.511 Pain in right shoulder (principal); M25.521 Pain in right elbow

== ENCOUNTER → 2017-11-12 | Outpatient (CLI) | payer MEDICARE, OTHER ==
--- NOTE | 2017-11-12 14:18 | MRI ---
MRI right shoulder without contrast INDICATION: Shoulder pain rotator cuff tear fall one month ago TECHNIQUE: Noncontrast MR imaging right shoulder standard protocol FINDINGS: There is mild AC joint osteoarthrosis. There is moderate subacromial and subdeltoid bursitis. There is a high-grade interstitial and bursal surface partial tear of the distal supraspinatus tendon with cystic change and edema at the horizontal facet greater tuberosity. There is extension to the anterior infraspinatus. A majority the infraspinatus is intact more posteriorly. Grade 1 generalized marbling of the muscle bellies of the shoulder girdle with up to grade 2 changes of the teres minor. No complete rotator cuff retraction. No bicep rupture or dislocation. Subscapularis appears intact. Mild degenerative fraying of the labrum especially posterior superior labrum IMPRESSION: High-grade interstitial and bursal surface partial tear distal supraspinatus with extension to the anterior infraspinatus with cystic change and edema in the greater tuberosity Mild AC joint osteoarthrosis Moderate subacromial and subdeltoid bursitis Degenerative glenoid labrum with minimal glenohumeral osteophyte formation Diffuse grade 1 marbling of the rotator cuff muscle bellies with grade 2 changes of the teres minor Electronically signed by: Jay Jay Madrid MD 11/12/2017 2:16 PM CDT
== END ==
LOC: MRI 13:00
PROVIDERS: ATTEND Orthopaedic Surgery
DX: M75.101 Unspecified rotator cuff tear or rupture of right shoulder, not specified as traumatic (principal); M19.011 Primary osteoarthritis, right shoulder

== ENCOUNTER → 2017-12-04 | Outpatient (CLI) | payer MEDICARE, OTHER | LOC: GMAL 11:31 | PROVIDERS: ATTEND Family Medicine | DX: R30.0 Dysuria (principal) ==

== ENCOUNTER → 2017-12-10 | Outpatient (CLI) | payer MEDICARE, OTHER | LOC: RESP 09:20 | PROVIDERS: ATTEND Orthopaedic Surgery | DX: Z01.818 Encounter for other preprocedural examination (principal) ==

== ENCOUNTER 2018-01-01 05:43 | Observation (INO) | payer MEDICARE, OTHER ==
--- NOTE | 2017-12-25 09:47 | HP ---
CHIEF COMPLAINT: Right shoulder pain. HISTORY OF PRESENT ILLNESS: Mr. Motley is a 67-year-old male with a history of pain in the right shoulder. He has had conservative measures, has failed to gain relief. He has had no trauma related to the onset of this, denies any radiation of pain and denies any neurologic symptoms. Because of his ongoing pain, an MRI was ordered and the MRI does show what appears to be a rotator cuff tear. His ongoing pain has caused him to consider surgical intervention and the presence of the rotator cuff tear would dictate the need for rotator cuff repair. After discussing the risks, benefits and alternatives to that, the patient has given informed consent. PAST SURGICAL HISTORY: None. MEDICATIONS: 1. Lisinopril. 2. Atorvastatin. 3. Aspirin. 4. Eliquis. 5. Amiodarone. 6. Diltiazem. 7. Metformin. ALLERGIES: PENICILLIN. CODE STATUS: DNR. IMMUNIZATIONS: Up to date. SOCIAL HISTORY: The patient does not drink, smoke or use any illicit drugs. FAMILY HISTORY: None pertinent to today's complaint. REVIEW OF SYSTEMS: Negative except as indicated in the History of Present Illness. PHYSICAL EXAMINATION: VITAL SIGNS: Blood pressure 132/61. Pulse 59. Height 5'6". Weight 220 pounds. MENTAL STATUS: The patient is awake, alert, and is able to give a good history and participate in the physical. The patient is oriented to person, place and time. SKIN: Normal tone and turgor. MUSCULOSKELETAL: He is very tender to palpation in the subacromial space with minor tenderness at the acromioclavicular joint. Sensation is intact throughout. The extremity is warm and well perfused. He does have full abduction although begins having pain at about 70 degrees. He has some tenderness with cross-chest adduction. He has negative belly press maneuver. IMAGING: MRI does demonstrate a rotator cuff tear. ASSESSMENT: 1. Rotator cuff tear. PLAN: The plan at this point is for rotator cuff repair. We have discussed the risks, benefits, and alternatives to that and the patient has given informed consent. #[id number] [facility]
[2018-01-01] MEDS ORDERED: LACTATED RINGERS 1,000 ML ONE ×2 (06:50→09:09)
[2018-01-01] MEDS ORDERED: SODIUM CHL 0.9% 100ML MINI-BAG 100 ML IVPB ONE (06:50)
[2018-01-01] MEDS ORDERED: ceFAZolin SODIUM 1 GM VIAL ONE ×2 (06:51→08:48)
[2018-01-01] MEDS ORDERED: BUPIVACAINE 0.25% W/EPI 50 ML VIAL INJ ONE (08:47)
[2018-01-01] MEDS ORDERED: LIDOCAINE 1% W/ EPINEPHRINE 20 ML VIAL INJ ONE (08:48)
[2018-01-01] MEDS ORDERED: VANCOMYCIN HCL INJ 1,000 MG VIAL IVPB ONE (08:48)
[2018-01-01] MEDS ORDERED: fentaNYL CITRATE INJ 50 MCG/ML AMP ONE (09:08)
[2018-01-01] MEDS ORDERED: LIDOCAINE 2 % GEL 5 ML TUBE TOP ONE (09:09)
[2018-01-01] MEDS ORDERED: ROCURONIUM BROMIDE 10 MG/ML VIAL ONE (09:09)
[2018-01-01] MEDS ORDERED: DEXAMETHASONE INJ 10 MG/ML VIAL IV ONE (10:00)
[2018-01-01] MEDS ORDERED: NEOSTIGMINE METHYLSULFATE 1 MG/ML ML IV ONE (10:00)
[2018-01-01] MEDS ORDERED: PROPOFOL 200 MG/20 ML VIAL IV ONE (10:00)
[2018-01-01] MEDS ORDERED: ATROPINE SULFATE 0.4 MG/ML 1ML VIAL IV ONE (10:00)
[2018-01-01] MEDS ORDERED: RACEPINEPHRINE 2.25% 0.5 ML UD ONE (12:10)
--- NOTE | 2018-01-01 13:49 | OP ---
DATE OF PROCEDURE: 01/01/18 PREOPERATIVE DIAGNOSIS: 1. Rotator cuff tear, right shoulder. POSTOPERATIVE DIAGNOSIS: 1. Rotator cuff tear, right shoulder. PROCEDURE: 1. Rotator cuff repair. 2. Acromioplasty. SURGEON: Rudolph Godoy MD. MANUFACTURING JOB TITLES: Donny Caraballo CST, SA-C. ANESTHESIA: General. COMPLICATIONS: None. FINDINGS: Approximately 1 cm tear at the footprint of the supraspinatus. INDICATION: Myra has a long history of pain associated with symptoms consistent with both rotator cuff tear and impingement. He has failed conservative measures and we have discussed options for him. After discussing the risks, benefits and alternatives to operative intervention, the patient has given informed consent for the above procedure. PROCEDURE: The patient was brought to the Operating Room and placed in the supine position. General anesthesia was induced and the patient was transitioned into the beach chair position. Following transitioning, he was sterilely prepped and draped. An incision was made at the lateral border of the acromion. Full thickness skin flaps were developed. A split was made between the anterior and middle heads of the deltoid. Bursectomy was performed , following by an acromioplasty. The rotator cuff was examined and the aforementioned tear was noted. The end of the tear was debrided and the anatomic footprint was debrided with a rongeur. A four-stranded suture anchor was used on the medial row, followed by lateral row anchor. The arm was taken through a range of motion and the cuff was stable without undue stress. The wound was very thoroughly irrigated and the deltoid was reapproximated. The skin was closed with a combination of running and interrupted subcuticular stitches. Sterile dressing was placed. The patient was placed in a sling. The patient was awoken from anesthesia and taken to Recovery. POSTOPERATIVE INSTRUCTIONS: He will remain in the sling with abduction pillow until followup with us in two days. #[id number] [facility]
[2018-01-01] MEDS ORDERED: HYDROcodone 5MG/APAP 325MG 1 EA TAB ONE (14:00)
--- NOTE | 2018-01-01 15:20 | HP ---
SUPERVISING PHYSICIAN: Young Quick MD CHIEF COMPLAINT: Status post intubation for rotator cuff repair with concerns for postoperative laryngeal edema. HISTORY OF PRESENT ILLNESS: Mr. Motley is a 67 year-old patient who was admitted to outpatient services today for an elective right shoulder repair of rotator cuff arthroscopically. The patient had been having pain in his right shoulder on and off for a limited time and failed to respond to outpatient treatment measures and requested elective surgery for control of his symptoms. On intubation today, nurse power shovel operator helper noted the patient had an edematous pharynx region with concerns for possible angioedema. The patient was intubated without any complications, completed surgery and was extubated but had some mild laryngeal spasms post extubation. The patient was observed in PACU for several hours after he was given racemic epinephrine and Decadron and was showing to be stable in regards to his airway management and was to be discharged home to followup with Dr. Clarke in the morning. It was noted the patient was on an Axel inhibitor and again there were concerns possibly that this was some mild angioedema secondary to his Axel. The patient prior to discharge in further discussion with the patient's family, there was concerns for the patient once discharged, it was felt that option at this point was to admit the patient to observation overnight to further monitor his airway status should he have any postoperative complications. He was placed in observation in stable condition. PAST MEDICAL HISTORY: 1. Atrial fibrillation diagnosed in 2013. 2. Coronary artery disease. 3. Hyperlipidemia. 4. Hypertension. 5. Myocardial infarction x2, one in 1997 and one in 2003. 6. Benign prostatic hypertrophy. 7. Diabetes mellitus, type 2. 8. B12 deficiency. 9. Essential retinal vein occlusion. PAST SURGICAL HISTORY: 1. Appendectomy. 2. Complete dentures. 3. Coronary artery stent placement with 5 stents. 4. Recent surgery as noted above for a rotator cuff repair of right shoulder. FAMILY HISTORY: Father at age 74 from Parkinson's. Mother at age 84 due to advanced age. 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 He is . He is a previous smoker currently has quit. He infrequently uses alcohol. REVIEW OF SYSTEMS: CONSTITUTIONAL: Denies any fever, chills or malaise. HEENT: Denies earaches , sore throat but had some nasal congestion and as noted in history of present illness laryngeal pharyngeal edema. RESPIRATORY: Denies shortness of breath, cough, wheezing. HEART was regular rate and rhythm without appreciable murmurs , rubs, or gallops. ABDOMEN: Soft, non-tender, positive bowel sounds. EXTREMITIES: Postoperative repair of right shoulder with bandage in place. Otherwise, no other complaints, no swelling or edema. NEUROLOGIC: He denies headaches, seizure activity, ataxia or other neurological deficits. PHYSICAL EXAMINATION: VITAL SIGNS: Temperature 96.6, pulse 78, blood pressure 136/76, respiratory rate 16, saturation 96% on nasal cannula at rest. Admission weight 99.7 kg. GENERAL: The patient on admission to the medical/surgical floor appeared to comfortable and in no acute distress. No obvious respiratory issues. HEENT: Tympanic membranes clear bilaterally. Oropharynx is pink and moist. Posterior pharynx was difficult to fully assess as it was hard to see on assessment but tonsils posterior appeared slightly large with some moderate erythema, no obvious edema. No subglottic edema. NECK: Supple, non-tender. Full range of motion. No jugular venous distention. No stridor was noted. CHEST: Lung sounds were diminished towards the bases, fairly clear bilaterally but no rhonchi, rales, or wheezes. CARDIOVASCULAR: Slightly irregular rate and rhythm without appreciable murmurs , rubs, or gallops. ABDOMEN: Obese but soft, non-tender, positive bowel sounds. EXTREMITIES: No cyanosis, clubbing, or edema. There was a surgical bandage in place on the right shoulder with right arm in a shoulder sling. NEUROLOGIC: Cranial nerves are grossly intact with no obvious neurological deficits. He is alert and oriented x3. LABORATORY: Chemistries showed normal electrolytes. Potassium 4.5, glucose 140 with calcium 8.7, BUN slightly elevated at 257. MICROBIOLOGY: Strep screen pending. RADIOLOGY: X-rays on admission included chest x-ray and per radiology interpretation of a 2-view chest showed a large heart with bilateral perihilar and lower lobe interstitial infiltrates, left more than right. There was also a soft tissue neck x-ray and per radiology interpretation - normal contour o epiglottis. There was note of tonsillar soft tissue shadows prominent for age. Soft tissue thickness is mildly prominent at the level of the epiglottis. ASSESSMENT: 1. Postoperative day 0 for right shoulder rotator cuff repair. 2. Mild angioedema postoperatively possibly secondary to either lisinopril or the chronic enlarged tonsils with strep screen pending. 3. Radiographic evidence of bilateral infiltrates likely due to excessive fluid management intraoperatively and preoperatively. 4 Elevated BNP as well as radiographic studies showing a large heart and vascular congestion with the patient showing no obvious distress and no formal documented diagnosis of congestive heart failure. 5. Atrial fibrillation on Cardizem and amiodarone. 6. Hyperlipidemia. 7. Hypertension. 8. Benign prostatic hypertrophy. 9. Type 2 diabetes mellitus. 10. B12 deficiency. PLAN: The patient is going to be placed in observation status tonight with close monitoring.of his airway and further management of his mild fluid overload with Lasix. He was given 20 mg of Lasix and is on cardiac telemetry. DVT prophylaxis is per protocol. He will be on insulin sliding scale and 1800 calorie diet. We will control pain with [place] as needed and will anticipate length of stay to be 1 to 2 days with anticipation of discharge tomorrow. Given their are concerns for angioedema, will hold off on the lisinopril until the patient can be seen in followup with his primary care physician, Dr. Clarke. I have also given him a second dose of steroids to include 125 mg of Solu- Medrol along with 10 mg of Decadron in the operating room. He will also be on breathing treatments q.i.d. and p.r.n. as needed. We will plan to re-x-ray his chest in the morning and reevaluate clinically [id number] discharge tomorrow. Until discharge, we will continue to monitor him and treat appropriately. #[id number] [facility]
[2018-01-01] MEDS ORDERED: methylPREDNISolone SODIUM SUC 125 MG/2 ML VIAL IV ONE (16:00)
[2018-01-01] MEDS ORDERED: ACETAMINOPHEN 325 MG TAB PO PRN (16:01)
[2018-01-01] MEDS ORDERED: IPRATROPIUM/ALBUTEROL 3 ML VIAL NEB PRN (16:01)
[2018-01-01] MEDS ORDERED: DEXTROSE 50% 25 GM/50 ML SYG IV PRN (16:05)
[2018-01-01] MEDS ORDERED: GLUCAGON INJ 1 MG VIAL SUBCU PRN (16:05)
[2018-01-01] MEDS ORDERED: IV SET AND CAP CHANGE INJ INJ SCH (16:30)
--- NOTE | 2018-01-01 16:42 | RAD ---
EXAM DESCRIPTION: Neck,Soft Tissue CLINICAL HISTORY: 67 years Male, questionable angioedema s/p intubation/extubation COMPARISON: None. FINDINGS: Normal contour of the epiglottis and aryepiglottic folds. Tonsillar soft tissue shadows are prominent for age. Soft tissue thickness is mildly prominent at the level of the epiglottis. Subglottic trachea is widely patent. Calcifications of the thyroid cartilage and cricoid cartilage are noted with normal hyoid. Degenerative changes are seen at the C1-2 level. Patient is edentulous. Calcification is seen at the carotid bifurcations. IMPRESSION: Normal contour of the epiglottis. Electronically signed by: Houston Mullen MD 01/01/2018 4:41 PM CDT
--- NOTE | 2018-01-01 16:44 | RAD ---
EXAM DESCRIPTION: Chest,2 Views CLINICAL HISTORY: questionable angioedema s/p intubation/extubation COMPARISON: Previous study October 26, 2017 TECHNIQUE: PA/lateral FINDINGS: Heart is prominent. Pulmonary vascularity appears mildly increased. Infiltrates appear predominantly interstitial in the left more than right perihilar and lower lobe regions. No pneumothorax or pleural effusion. Lateral view shows increased density over the T-spine which could be infiltrate or volume loss. IMPRESSION: Large heart with bilateral perihilar and lower lobe interstitial infiltrates left more than right. Follow-up is recommended to ensure complete clearance. Electronically signed by: Houston Mullen MD 01/01/2018 4:43 PM CDT
[2018-01-01] MEDS: INSULIN LISPRO 100 UNITS/ML PEN SUBCU SCH ×2 (16:45→21:02)
[2018-01-01] MEDS: SODIUM CHLORIDE 0.9% (FLUSH) 10 ML SYG IV PRN ×2 (17:01→18:55)
[2018-01-01] MEDS ORDERED: FUROSEMIDE INJ 20 MG/2 ML VIAL IV ONE (18:44)
[2018-01-01] MEDS: HYDROcodone 5MG/APAP 325MG 1 EA TAB PO PRN (19:57)
[2018-01-01] MEDS ORDERED: ASPIRIN (ENTERIC COATED) 325 MG TAB PO SCH (21:00)
[2018-01-01] MEDS ORDERED: ATORVASTATIN 20 MG TAB PO SCH (21:00)
[2018-01-01] MEDS ORDERED: ASPIRIN (CHEWABLE) 81 MG TAB PO SCH (21:00)
[2018-01-01] MEDS: APIXABAN 2.5 MG TAB PO SCH (21:05)
[2018-01-01] MEDS ORDERED: ALBUTEROL SULFATE 2.5 MG/3 ML VIAL NEB PRN (21:19)
--- NOTE | 2018-01-01 22:18 | PCM.CORE ---
Physician DVT/VTE - Prophylaxis Currently: Patient already on anticoagulation therapy - yamila - Nurse DVT Assessment & Total Each Risk Factor Represents 2 Points: Age 60-74, Major Surgery >45 minutes DVT Assessment Score: 4 - 3-4 High Risk Treatments: Early Ambulation *, Sequential Compression Device
[2018-01-02] MEDS: HYDROcodone 5MG/APAP 325MG 1 EA TAB PO PRN ×2 (01:10→06:29)
[2018-01-02] MEDS ORDERED: metFORMIN HCL 500 MG TAB PO SCH (07:30)
[2018-01-02] MEDS: INSULIN LISPRO 100 UNITS/ML PEN SUBCU SCH (07:44)
--- NOTE | 2018-01-02 07:47 | RAD ---
EXAM DESCRIPTION: Chest,2 Views CLINICAL HISTORY: f/u vascualr congestion - bilater infiltrates COMPARISON: January 01, 2018 TECHNIQUE: PA/lateral FINDINGS: Definite improvement in the appearance of the lungs is slightly improved aeration and inspiration and essentially normal pulmonary markings in the upper lung field and clearing a changes in the left parahilar region. There is still patchy atelectasis or bronchopneumonia at the left lung base and slightly coarse markings on the right that are little changed from prior study and may represent fibrosis. IMPRESSION: Partial clearing of the basilar lung anderson particularly in the mid left lung compared to prior study. Vascularity is in the range of normal. Electronically signed by: Young Vaughan MD 01/02/2018 7:46 AM CDT
[2018-01-02] MEDS ORDERED: ALBUTEROL SULFATE 2.5 MG/3 ML VIAL NEB SCH (08:00)
[2018-01-02] MEDS: APIXABAN 2.5 MG TAB PO SCH (08:58)
[2018-01-02] MEDS ORDERED: AMIODARONE HCL 200 MG TAB PO SCH (09:00)
[2018-01-02] MEDS ORDERED: diltiaZEM HCL CD 180 MG CAP PO SCH (09:00)
[2018-01-02] MEDS ORDERED: TAMSULOSIN 0.4 MG CAP PO SCH (09:00)
[2018-01-02] MEDS ORDERED: PSYLLIUM 0.52 GM PO SCH (09:00)
[2018-01-02 10:48] VITALS: BP 113/64; TEMP 98.2; O2SAT 96
--- NOTE | 2018-01-02 13:54 | CONS ---
SUPERVISING PHYSICIAN: Young Quick MD CHIEF COMPLAINT: Status post intubation for rotator cuff repair with concerns for postoperative laryngeal edema. HISTORY OF PRESENT ILLNESS: Mr. Motley is a 67 year-old patient who was admitted to outpatient services today for an elective right shoulder repair of rotator cuff orthoscopically. The patient had been having pain in his right shoulder on and off for a limited time and failed to respond to outpatient treatment measures and requested elective surgery for control of his symptoms. On intubation today, nurse transit worker noted the patient had an edematous pharynx region with concerns for possible angioedema. The patient was intubated without any complications, completed surgery and was extubated but had some mild laryngeal spasms post extubation. The patient was observed in PACU for several hours after he was given racemic epinephrine and Decadron and was showing to be stable in regards to his airway management and was to be discharged home to followup with Dr. Clarke in the morning. It was noted the patient was on an Axel inhibitor and again there were concerns possibly that this was some mild angioedema secondary to his Axel. The patient prior to discharge in further discussion with the patient's family, there was concerns for the patient once discharged, it was felt that option at this point was to admit the patient to observation overnight to further monitor his airway status should he have any postoperative complications. He was placed in observation in stable condition. PAST MEDICAL HISTORY: 1. Atrial fibrillation diagnosed in 2013. 2. Coronary artery disease. 3. Hyperlipidemia. 4. Hypertension. 5. Myocardial infarction x2, one in 1997 and one in 2003. . 6. Benign prostatic hypertrophy. 7. Diabetes mellitus, type 2.. 8. B12 deficiency. 9. Essential retinal vein occlusion. PAST SURGICAL HISTORY: 1. Appendectomy. 2. Complete dentures. 3. Coronary artery stent placement with 5 stents. 4. Recent surgery as noted above for a rotator cuff repair of right shoulder. FAMILY HISTORY: Father at age 74 from Parkinson's. Mother at age 84 due to advanced age. 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 He is . He is a previous smoker currently has quit. He infrequently uses alcohol. REVIEW OF SYSTEMS: CONSTITUTIONAL: Denies any fever, chills or malaise. HEENT: Denies earaches , sore throat but had some nasal congestion and as noted in history of present illness laryngeal pharyngeal edema. RESPIRATORY: Denies shortness of breath, cough, wheezing. HEART was regular rate and rhythm without appreciable murmurs , rubs, or gallops. ABDOMEN: Soft, non-tender, positive bowel sounds. EXTREMITIES: Postoperative repair of right shoulder with bandage in place. Otherwise, no other complaints, no swelling or edema. NEUROLOGIC: He denies headaches, seizure activity, ataxia or other neurological deficits. PHYSICAL EXAMINATION: VITAL SIGNS: Temperature 96.6, pulse 78, blood pressure 136/76, respiratory rate 16, saturation 96% on nasal cannula at rest. Admission weight 99.7 kg. GENERAL: The patient on admission to the medical/surgical floor appeared to comfortable and in no acute distress. No obvious respiratory issues. HEENT: Tympanic membranes clear bilaterally. Oropharynx is pink and moist. Posterior pharynx was difficult to fully assess as it was hard to see on assessment but tonsils posterior appeared slightly large with some moderate erythema, no obvious edema. No subglottic edema. NECK: Supple, non-tender. Full range of motion. No jugular venous distention. No stridor was noted. CHEST: Lung sounds were diminished towards the bases, fairly clear bilaterally but no rhonchi, rales, or wheezes. CARDIOVASCULAR: Slightly irregular rate and rhythm without appreciable murmurs , rubs, or gallops. ABDOMEN: Obese but soft, non-tender, positive bowel sounds. EXTREMITIES: No cyanosis, clubbing, or edema. There was a surgical bandage in place on the right shoulder with right arm in a shoulder sling. NEUROLOGIC: Cranial nerves are grossly intact with no obvious neurological deficits. He is alert and oriented x3. LABORATORY: Chemistries showed normal electrolytes. Potassium 4.5, glucose 140 with calcium 8.7, BUN slightly elevated at 257. MICROBIOLOGY: Strep screen pending. RADIOLOGY: X-rays on admission included chest x-ray and per radiology interpretation of a 2-view chest showed a large heart with bilateral perihilar and lower lobe interstitial infiltrates, left more than right. There was also a soft tissue neck x-ray and per radiology interpretation - normal contour o epiglottis. There was note of tonsillar soft tissue shadows prominent for age. Soft tissue thickness is mildly prominent at the level of the epiglottis. ASSESSMENT: 1. Postoperative day 0 for right shoulder rotator cuff repair. 2. Mild angioedema postoperatively possibly secondary to either lisinopril or the chronic enlarged tonsils with strep screen pending. 3. Radiographic evidence of bilateral infiltrates likely due to excessive fluid management intraoperatively and preoperatively. 4 Elevated BNP as well as radiographic studies showing a large heart and vascular congestion with the patient showing no obvious distress and no formal documented diagnosis of congestive heart failure. 5. Atrial fibrillation on Cardizem and amiodarone. 6. Hyperlipidemia. 7. Hypertension. 8. Benign prostatic hypertrophy. 9. Type 2 diabetes mellitus. 10. B12 deficiency. PLAN: The patient is going to be placed in observation status tonight with close monitoring.of his airway and further management of his mild fluid overload with Lasix. He was given 20 mg of Lasix and is on cardiac telemetry. DVT prophylaxis is per protocol. He will be on insulin sliding scale and 1800 calorie diet. We will control pain with [place] as needed and will anticipate length of stay to be 1 to 2 days with anticipation of discharge tomorrow. Given their are concerns for angioedema, will hold off on the lisinopril until the patient can be seen in followup with his primary care physician, Dr. Clarke. I have also given him a second dose of steroids to include 125 mg of Solu- Medrol along with 10 mg of Decadron in the operating room. He will also be on breathing treatments q.i.d. and p.r.n. as needed. We will plan to re-x-ray his chest in the morning and reevaluate clinically [id number] discharge tomorrow. Until discharge, we will continue to monitor him and treat appropriately. #[id number] [facility]
--- NOTE | 2018-01-02 14:06 | DS ---
SUPERVISING PHYSICIAN: Young Quick MD DISCHARGE DIAGNOSIS: 1. Postoperative day 1 for right shoulder rotator cuff repair. 2. Mild angioedema postoperatively possibly secondary to either lisinopril or chronically enlarged tonsils with strep screen negative. 3. Radiographic evidence of bilateral infiltrates, most likely due to excessive fluid management intraoperatively and preoperatively. 4 Elevated BNP with no diagnosis of congestive heart failure. 5. Atrial fibrillation on Cardizem and amiodarone. 6. Hyperlipidemia. 7. Hypertension. 8. Benign prostatic hypertrophy. 9. Type 2 diabetes mellitus. 10. B12 deficiency. HISTORY OF PRESENT ILLNESS: This is a 67 year-old patient who was admitted to outpatient services yesterday for an elective right shoulder repair of rotator cuff arthroscopically. The patient had been having pain in his right shoulder on and failed to respond to outpatient treatment measures and requested elective surgery for control of his symptoms. After intubation, nurse commanding officer traffic division noted the patient had an edematous pharynx region with concerns for possible angioedema. The patient was intubated without any complications, completed surgery and was extubated but had some mild laryngeal spasms post extubation. The patient was observed in PACU for several hours after he was given racemic epinephrine as well as Decadron and was showing to be stable in regards to his airway management. He was to be discharged home to followup with Dr. Clarke today. The patient is on an JACQUES inhibitor and has only been on it for several months. There were concerns for either enlarged tonsils or the lisinopril responsible for his angioedema. The patient was placed in observation overnight to further monitor his airway status. He was given 125 mg of Solu-Medrol. He was also given some Lasix and placed on cardiac telemetry. His lisinopril was held. He had no complications overnight. His chest x-ray this morning shows partial clearing of the basilar lung anderson, particularly in the mid left lung compared to prior study. Vascularity is in the normal range. He will be discharged home in stable condition. DISCHARGE PLAN: The patient will be discharged home in stable condition. He is to hold his lisinopril for now until further discussion with his primary care physician, Dr. Clarke. He is to see Dr. Godoy tomorrow for his routine postoperative followup. He will have a followup appointment with Dr. Clarke on 01/09/18 at 9:30 AM. He is to resume his diabetic diet and increase activity as per physical therapy. He is to resume his previous medications. He will be sent home with a prescription from Dr. Godoy for hydrocodone for pain. He is to take his blood pressure on a daily basis and return to the hospital or followup with Dr. Clarke or Dr. Godoy as needed. DISCHARGE MEDICATIONS: 1. Baby aspirin. 2. Lipitor. 3. Metformin. 4. Eliquis. 5. Amiodarone. 6. Diltiazem. 5. Flomax. 6. Hydrocodone. #[id number] [facility]
== END 2018-01-02 11:45 | disposition home or self-care (01) ==
LOC: AMB 05:43 → MS 15:19
PROVIDERS: ADMIT Nurse Practitioner Family; ATTEND Nurse Practitioner Acute Care
DX: M75.101 Unspecified rotator cuff tear or rupture of right shoulder, not specified as traumatic (principal); M75.41 Impingement syndrome of right shoulder; T78.3XXA Angioneurotic edema, initial encounter; R79.89 Other specified abnormal findings of blood chemistry; R91.8 Other nonspecific abnormal finding of lung field; E11.9 Type 2 diabetes mellitus without complications; I10 Essential (primary) hypertension; I48.91 Unspecified atrial fibrillation; I25.10 Atherosclerotic heart disease of native coronary artery without angina pectoris; E78.5 Hyperlipidemia, unspecified; N40.0 Benign prostatic hyperplasia without lower urinary tract symptoms; E53.8 Deficiency of other specified B group vitamins; I25.2 Old myocardial infarction; Z66 Do not resuscitate; Z79.01 Long term (current) use of anticoagulants; Z79.84 Long term (current) use of oral hypoglycemic drugs; Z79.82 Long term (current) use of aspirin; Z79.899 Other long term (current) drug therapy; Z88.0 Allergy status to penicillin; Z87.891 Personal history of nicotine dependence
CPT/HCPCS: 29827; 29826; 01630; 96372 ×2; 96374; 96375; J7611; J0690 ×2; J3010; J1940; J2930; J2710; J3490; J3370; J1100; J1815; J7050; J7120 ×2; 80048; 82948 ×4; 87880; 36415 ×2; 83880; 36416 ×3; 71046 ×2; 70360; 94640; G0378

== ENCOUNTER → 2018-02-27 | Outpatient (CLI) | payer MEDICARE, OTHER | LOC: GMAL 12:13 | PROVIDERS: ATTEND Family Medicine | DX: D51.3 Other dietary vitamin B12 deficiency anemia (principal); E03.8 Other specified hypothyroidism ==

== ENCOUNTER 2018-03-10 19:51 | Emergency (ER) | payer MEDICARE, OTHER ==
--- NOTE | 2018-03-10 20:51 | ED.PDOC ---
History of Present Illness - General Chief Complaint: Laceration Stated Complaint: right hand laceration Time Seen by Provider: 03/10/18 20:50 Source: patient Exam Limitations: no limitations - History of Present Illness Initial Comments: Myra Motley 68 y/o male stated tripped and fell on the sharp edge of his carport causing laceration to his right hand.Denies head/neck injuries. Occurred: just prior to arrival Pain - Upper Extremity: mild: Wrist, right Method of Injury: fell Improving Factors: nothing Worsening Factors: nothing Associated Symptoms: pain right hand Allergies/Adverse Reactions: Allergies Penicillins Allergy (Verified 03/10/18 20:05) Rash Home Medications: Ambulatory Orders Aspirin [Baby Aspirin] 325 mg PO BEDTIME 10/03/14 Atorvastatin Calcium [Lipitor] 80 mg PO BEDTIME 10/03/14 Metformin HCl 500 mg PO DAILY 06/18/16 Apixaban [Eliquis] 5 mg PO BID 10/02/16 Amiodarone HCl 200 mg PO DAILY 10/26/17 diltiaZEM HCL CD [Cardizem Cd] 180 mg PO BID 10/26/17 Tamsulosin HCl [Flomax] 0.4 mg PO DAILY 12/27/17 HYDROcodone 5MG/APAP 325MG [Sharon 5/325] 1 ea PO Q4H PRN tab 01/02/18 Review of Systems - Review of Systems Constitutional: States: no symptoms reported EENTM: States: no symptoms reported Respiratory: States: no symptoms reported Cardiology: States: no symptoms reported Skin: States: see HPI Past Medical History (General) - Patient Medical History Hx Seizures: No Hx Stroke: No Hx Dementia: No Hx Asthma: No Hx of COPD: No Hx Cardiac Disorders: Yes - a fib-NSR after starting amniodarone Hx Congestive Heart Failure: No Hx Pacemaker: No Hx Hypertension: Yes Hx Thyroid Disease: No Hx Diabetes: Yes Hx Gastroesophageal Reflux: No Hx Renal Disease: No Hx Cancer: No Hx of HIV: No Hx Hepatitis C: No Hx MRSA: No Surgical History: appendectomy - Vaccination History Hx Tetanus, Diphtheria Vaccination: No Hx Influenza Vaccination: No Hx Pneumococcal Vaccination: No - Social History Hx Tobacco Use: Yes Hx Chewing Tobacco Use: No Hx Alcohol Use: No Hx Substance Use: No Hx Substance Use Treatment: No Hx Depression: No Hx Physical Abuse: No Hx Emotional Abuse: No Hx Suspected Abuse: No - Activities of Daily Living Patient Lives Alone: No - Female History Patient : No Family Medical History - Family History Mother Family History: No Known Living Status: Age at (years of age): 83 Cause of : lack of will to thrive Hx Family Hypertension: Yes - parents Hx Cardiac Disease: Yes - dad Hx Family;Other: dad-PARKINSONS DISEASE Physical Exam - Physical Exam General Appearance: Alert, Comfortable, No apparent distress Eyes, Ears, Nose, Throat Exam: normal ENT inspection Neck: non-tender, full range of motion, supple Cardiovascular/Respiratory: regular rate, rhythm, no M/R/G, normal peripheral pulses Back Exam: no CVA tenderness, no vertebral tenderness Shoulder Exam: no evidence of injury Elbow/Forearm Exam: no evidence of injury Wrist Exam: no evidence of injury Hand Exam: normal ROM, laceration - 2 cm volar aspect right hand Neuro/Tendon: normal sensation, normal motor functions, normal tendon functions , responds to pain, no evidence tendon injury Mental Status: alert, oriented x 3 Skin Exam: normal color, warm/dry Progress - Progress Progress: 03/10/18 20:58 Vital Signs - 8 hr 03/10/18 20:02 Temperature 98.8 F Pulse Rate [ 67 monitor] Respiratory 18 Rate Blood Pressure 159/92 [Left Arm] O2 Sat by Pulse 98 Oximetry Procedures - Laceration/Wound Repair Left Hand Wound Length (cm): 2 - volar aspect Wound's Depth, Shape: irregular Wound Explored: no foreign body removed Irrigated w/ Saline (cc's): 30 Betadine Prep?: No - hibiclens Anesthesia: 1% Lidocaine Volume Anesthetic (cc's): 7 Wound Repaired With: sutures Suture Size/Type: 4:0 Number of Sutures: 7 Layer Closure?: No Sterile Dressing Applied?: Yes Departure - Departure Clinical Impression: Laceration of hand, right Qualifiers: Encounter type: initial encounter Foreign body presence: without foreign body Qualified Code(s): S61.411A - Laceration without foreign body of right hand, initial encounter Fall against sharp object Qualifiers: Encounter type: initial encounter Qualified Code(s): W01.119A - Fall on same level from slipping, tripping and stumbling with subsequent striking against unspecified sharp object, initial encounter Time of Disposition: 21:36 Disposition: Discharge to Home or Self Care Condition: Good Departure Forms: ED Discharge - Pt. Copy, Patient Portal Self Enrollment Instructions: DI for Laceration Repair, How to Care for a Laceration After Repair Referrals: Garrick Clarke III, MD [Primary Care Provider] - 1-2 Weeks Home Medications: Ambulatory Orders Aspirin [Baby Aspirin] 325 mg PO BEDTIME 10/03/14 Atorvastatin Calcium [Lipitor] 80 mg PO BEDTIME 10/03/14 Metformin HCl 500 mg PO DAILY 06/18/16 Apixaban [Eliquis] 5 mg PO BID 10/02/16 Amiodarone HCl 200 mg PO DAILY 10/26/17 diltiaZEM HCL CD [Cardizem Cd] 180 mg PO BID 10/26/17 Tamsulosin HCl [Flomax] 0.4 mg PO DAILY 12/27/17 HYDROcodone 5MG/APAP 325MG [Sharon 5/325] 1 ea PO Q4H PRN tab 01/02/18 Additional Instructions: Removal of stitches 22 March 2018 [facility]
[2018-03-10] MEDS ORDERED: TETANUS,DIPHTHERIA,PERTUSSIS 1 EA SYG IM ONE (20:58)
[2018-03-10] MEDS ORDERED: LIDOCAINE 1% 2 ML VIAL INJ ONE (21:05)
[2018-03-10] MEDS ORDERED: CHLORHEXIDINE GLUCONATE 4 % 15 ML UD TOP ONE ×2 (21:05)
[2018-03-10] MEDS ORDERED: LIDOCAINE 1% 50 ML VIAL INJ ONE (21:07)
[2018-03-10] MEDS ORDERED: NEOMYCIN-BACITRACIN-POLYMYXIN 0.9 GM UD TOP ONE (21:29)
[2018-03-11 17:47] VITALS: BP 140/80; TEMP 98.8; O2SAT 99
== END 2018-03-10 21:48 | disposition home or self-care (01) ==
LOC: ER 19:51
DX: S61.411A Laceration without foreign body of right hand, initial encounter (principal); I48.91 Unspecified atrial fibrillation; I10 Essential (primary) hypertension; E11.9 Type 2 diabetes mellitus without complications; Z23 Encounter for immunization; Z87.891 Personal history of nicotine dependence; Z79.899 Other long term (current) drug therapy; Z79.82 Long term (current) use of aspirin; Z88.0 Allergy status to penicillin; W01.119A Fall on same level from slipping, tripping and stumbling with subsequent striking against unspecified sharp object, initial encounter; Y92.008 Other place in unspecified non-institutional (private) residence as the place of occurrence of the external cause

== ENCOUNTER 2018-04-23 18:27 | Emergency (ER) | payer MEDICARE, OTHER ==
--- NOTE | 2018-04-23 18:50 | ED.PDOC ---
History of Present Illness - General Chief Complaint: Syncope/Near Syncope Time Seen by Provider: 04/23/18 18:44 Source: patient Exam Limitations: no limitations - History of Present Illness Initial Comments: Patient presents after a single syncopal event one hour [employer]. He said that he was having a coughing spell that he attributes to his history of smoking. He no longer smokes. He coughed very hard and felt "flim" go into his throat. He said he became short of breath and sat on the ground to catch his breath. He says the next thing he remembers he was waking up. Nobody witnessed the event. He says he has left shoulder pain and right lower rib pain. He is s/p AMI x 3. First one in 1993 he received 3 stents. He received three stents after his second AMI. His last AMI was in 2006 and he did not receive stents at that time. He says this does not feel like a heart attack. Takes "blood thinners" for atrial fibrillation. Took an ASA 325 mg this morning. No current dyspnea. No other complaints. Timing/Duration: 1 hour Severity: moderate Improving Factors: nothing Worsening Factors: nothing Associated Symptoms: denies symptoms Allergies/Adverse Reactions: Allergies Penicillins Allergy (Verified 03/10/18 20:05) Rash Home Medications: Ambulatory Orders Aspirin [Baby Aspirin] 325 mg PO BEDTIME 10/03/14 Atorvastatin Calcium [Lipitor] 80 mg PO BEDTIME 10/03/14 Metformin HCl 500 mg PO DAILY 06/18/16 Apixaban [Eliquis] 5 mg PO BID 10/02/16 Amiodarone HCl 200 mg PO DAILY 10/26/17 diltiaZEM HCL CD [Cardizem Cd] 180 mg PO BID 10/26/17 Tamsulosin HCl [Flomax] 0.4 mg PO DAILY 12/27/17 HYDROcodone 5MG/APAP 325MG [[place] 5/325] 1 ea PO Q4H PRN tab 01/02/18 Review of Systems - Review of Systems Constitutional: States: no symptoms reported EENTM: States: no symptoms reported Respiratory: States: no symptoms reported Cardiology: States: see HPI Gastrointestinal/Abdominal: States: no symptoms reported Genitourinary: States: no symptoms reported Musculoskeletal: States: see HPI Skin: States: no symptoms reported Neurological: States: see HPI Endocrine: States: no symptoms reported Hematologic/Lymphatic: States: no symptoms reported Past Medical History (General) - Patient Medical History Hx Seizures: No Hx Stroke: No Hx Dementia: No Hx Asthma: No Hx of COPD: No Hx Cardiac Disorders: Yes - Atrial fib, [place] x 2 - - Stents placed Hx Congestive Heart Failure: No Hx Pacemaker: No Hx Hypertension: Yes Hx Thyroid Disease: No Hx Diabetes: Yes Hx Gastroesophageal Reflux: Yes Hx Renal Disease: No Hx Cancer: No Hx of HIV: No Hx Hepatitis C: No Hx MRSA: No Surgical History: appendectomy - Vaccination History Hx Tetanus, Diphtheria Vaccination: No Hx Influenza Vaccination: No Hx Pneumococcal Vaccination: Yes - Social History Hx Tobacco Use: Yes - Quit 2010 Hx Chewing Tobacco Use: No Hx Alcohol Use: No Hx Substance Use: No Hx Substance Use Treatment: No Hx Depression: No Hx Physical Abuse: No Hx Emotional Abuse: No Hx Suspected Abuse: No - Female History Patient : No Family Medical History - Family History Mother Family History: No Known Living Status: Age at (years of age): 83 Cause of : lack of will to thrive Hx Family Hypertension: Yes - parents Hx Cardiac Disease: Yes - dad Hx Family;Other: dad-PARKINSONS DISEASE Physical Exam - Physical Exam General Appearance: Alert Eye Exam: bilateral normal Ears, Nose, Throat: normal ENT inspection Neck: non-tender, full range of motion, supple Respiratory: chest non-tender, lungs clear, normal breath sounds Cardiovascular/Chest: normal peripheral pulses, regular rate, rhythm, no edema Gastrointestinal/Abdominal: normal bowel sounds, non tender, soft Back Exam: normal inspection, no CVA tenderness Extremity: normal range of motion Neurologic: cutter brake lining II-XII nml as tested, no motor/sensory deficits, alert Skin Exam: normal color Lymphatic: no adenopathy Comments: Patient has TTP over the anterior right 8-10th ribs. Progress - Progress Progress: 04/23/18 22:17 Patient remained symptom free in the E.R. His troponins x two were negative. Neurological exam was normal. No CT indicated at this time. Given the patient's history of having a hard coughing spell just prior to syncope, it was likely vasovagal. Care instructions given. E.D. warnings given. Questions were elicited and answered. Patient voiced understanding and agreement with the plan. Laboratory Tests 04/23/18 04/23/18 04/23/18 19:14 19:14 19:14 WBC 9.8 RBC 4.85 Hgb 13.3 L Hct 40.8 L MCV 84.0 MCH 27.4 MCHC 32.6 L RDW 15.8 H Plt Count 212 MPV 8.5 Absolute Neuts (auto) 7.70 H Absolute Lymphs (auto) 1.50 Absolute Monos (auto) 0.50 Absolute Eos (auto) 0.10 Absolute Basos (auto) 0.00 Neutrophils % 78.0 Lymphocytes % 15.2 L Monocytes % 5.2 Eosinophils % 1.1 Basophils % 0.5 PT INR PTT (SP) Sodium 139 Potassium 4.1 Chloride 106 Carbon Dioxide 23 Anion Gap 14.1 BUN 18 Creatinine 1.23 BUN/Creatinine Ratio 14.6 Random Glucose 212 H Serum Osmolality 285.7 Calcium 8.9 Total Bilirubin 0.4 AST 31 ALT 52 Alkaline Phosphatase 116 Creatine Kinase 33 L CK-MB (CK-2) 2.7 CK-MB (CK-2) % Not Reportable Troponin I 0.02 B-Natriuretic Peptide 149.0 H Serum Total Protein 6.8 Albumin 3.6 Globulin 3.2 Albumin/Globulin Ratio 1.1 04/23/18 04/23/18 19:14 21:47 WBC RBC Hgb Hct MCV MCH MCHC RDW Plt Count MPV Absolute Neuts (auto) Absolute Lymphs (auto) Absolute Monos (auto) Absolute Eos (auto) Absolute Basos (auto) Neutrophils % Lymphocytes % Monocytes % Eosinophils % Basophils % PT 10.2 INR 1.02 PTT (SP) 24.5 Sodium Potassium Chloride Carbon Dioxide Anion Gap BUN Creatinine BUN/Creatinine Ratio Random Glucose Serum Osmolality Calcium Total Bilirubin AST ALT Alkaline Phosphatase Creatine Kinase CK-MB (CK-2) CK-MB (CK-2) % Troponin I < 0.02 B-Natriuretic Peptide Serum Total Protein Albumin Globulin Albumin/Globulin Ratio 04/23/18 22:19 Departure - Departure Clinical Impression: Vasovagal syncope Disposition: Discharge to Home or Self Care Condition: Good Departure Forms: ED Discharge - Pt. Copy, Patient Portal Self Enrollment Diet: resume usual diet Activity: increase activity as tolerated Referrals: Garrick Clarke III, MD [Primary Care Provider] - 1-2 Weeks Home Medications: Ambulatory Orders Aspirin [Baby Aspirin] 325 mg PO BEDTIME 10/03/14 Atorvastatin Calcium [Lipitor] 80 mg PO BEDTIME 10/03/14 Metformin HCl 500 mg PO DAILY 06/18/16 Apixaban [Eliquis] 5 mg PO BID 10/02/16 Amiodarone HCl 200 mg PO DAILY 10/26/17 diltiaZEM HCL CD [Cardizem Cd] 180 mg PO BID 10/26/17 Tamsulosin HCl [Flomax] 0.4 mg PO DAILY 12/27/17 HYDROcodone 5MG/APAP 325MG [[place] 5/325] 1 ea PO Q4H PRN tab 01/02/18 Additional Instructions: Follow up with your regular physician tomorrow. Return to the E.R. for chest pain or fainting. Return to the E.R. if you develop numbness, weakness, or tingling in your arms or legs.
--- NOTE | 2018-04-23 19:15 | RAD ---
EXAM DESCRIPTION: Chest,1 View CLINICAL HISTORY:68 years Male, syncope Comparison: January 02, 2018 FINDINGS: No focal lung consolidation. No pleural effusion. No pneumothorax. Mildly enlarged cardiac silhouette.. Atherosclerotic vascular calcifications. No acute osseous abnormality. Soft tissues are unremarkable. IMPRESSION: No acute findings. No focal lung consolidation. Mildly enlarged cardiac silhouette Electronically signed by: Lupillo Solis MD 04/23/2018 7:14 PM CDT
--- NOTE | 2018-04-23 19:35 | RAD ---
EXAM DESCRIPTION: Shoulder,Left 2 or More Views CLINICAL HISTORY: 68 years Male, fall COMPARISON: None. FINDINGS: No fracture or dislocation. Mild acromioclavicular osteoarthrosis. Soft tissues are unremarkable. IMPRESSION: No acute abnormality. Electronically signed by: Lupillo Solis MD 04/23/2018 7:34 PM CDT
--- NOTE | 2018-04-23 19:45 | RAD ---
EXAM DESCRIPTION: Bilateral Ribs CLINICAL HISTORY:68 years Male, pain after fall Comparison: Chest x-ray earlier same day at 6:50 p.m. and 01/02/2018 FINDINGS: Single AP view of the chest Stable cardiomediastinal silhouette. No lung consolidate or pleural effusion. Linear opacification in the left lung base suggesting subsegmental atelectasis or scarring. Vascular calcifications at the aortic knob. No evidence of rib fracture. IMPRESSION: No acute chest finding or evidence of rib fracture. Electronically signed by: Yoko Haque MD 04/23/2018 7:44 PM CDT
[2018-04-23 19:46] VITALS: TEMP 98.1
[2018-04-23 22:31] VITALS: BP 144/79; O2SAT 100
== END 2018-04-23 22:31 | disposition home or self-care (01) ==
LOC: ER 18:27
DX: R55 Syncope and collapse (principal); R05 Cough; M25.512 Pain in left shoulder; R07.81 Pleurodynia; I48.91 Unspecified atrial fibrillation; I25.2 Old myocardial infarction; E11.9 Type 2 diabetes mellitus without complications; K21.9 Gastro-esophageal reflux disease without esophagitis; I10 Essential (primary) hypertension; Z87.891 Personal history of nicotine dependence; Z79.01 Long term (current) use of anticoagulants; Z79.82 Long term (current) use of aspirin; Z79.84 Long term (current) use of oral hypoglycemic drugs; Z79.899 Other long term (current) drug therapy; Z95.5 Presence of coronary angioplasty implant and graft

== ENCOUNTER 2019-01-26 17:46 | Emergency (ER) | payer MEDICARE, OTHER ==
[2019-01-26] MEDS ORDERED: POVIDONE IODINE 10 % 15 ML UD TOP ONE (18:19)
[2019-01-26] MEDS ORDERED: LIDOCAINE 1% 10 ML VIAL INJ ONE (18:20)
[2019-01-26] MEDS ORDERED: TETANUS,DIPHTHERIA,PERTUSSIS 1 EA SYG IM ONE (18:58)
--- NOTE | 2019-01-26 19:01 | ED.PDOC ---
History of Present Illness - General Chief Complaint: Laceration Stated Complaint: Pt cut finger with a chainsaw Time Seen by Provider: 01/26/19 18:00 Source: patient Exam Limitations: no limitations - History of Present Illness Initial Comments: Patient has laceration on left little finger from saw during woodwork. He is on Eloquis for atrial fibrillation with CAD. He has no other complaints and has bleeding under control Timing/Duration: just prior to arrival Severity: moderate Location: hands Improving Factors: nothing Worsening Factors: nothing Associated Symptoms: denies symptoms Allergies/Adverse Reactions: Allergies Penicillins Allergy (Verified 01/26/19 18:59) Rash Home Medications: Ambulatory Orders Aspirin [Baby Aspirin] 325 mg PO BID 10/03/14 Atorvastatin Calcium [Lipitor] 80 mg PO BEDTIME 10/03/14 Metformin HCl [Metformin Hydrochloride] 500 mg PO DAILY 06/18/16 Apixaban [Eliquis] 5 mg PO BID 10/02/16 Amiodarone HCl 200 mg PO BID 10/26/17 diltiaZEM HCL CD [Cardizem Cd] 180 mg PO BID 10/26/17 Tamsulosin HCl [Flomax] 0.4 mg PO DAILY 12/27/17 Sulfa/Trimeth 800/160 (Ds) Tab [Bactrim DS] 1 tablet PO BID #20 tab 01/26/19 Review of Systems - Review of Systems Constitutional: States: no symptoms reported. Denies: chills, fever EENTM: States: no symptoms reported. Denies: blurred vision, ear pain, nose pain, nose congestion Respiratory: States: no symptoms reported. Denies: cough, short of breath, wheezing Cardiology: States: no symptoms reported. Denies: chest pain, edema, palpitations Gastrointestinal/Abdominal: States: no symptoms reported. Denies: abdominal pain, diarrhea Skin: States: see HPI Past Medical History (General) - Patient Medical History Hx Seizures: No Hx Stroke: No Hx Dementia: No Hx Asthma: No Hx of COPD: No Hx Cardiac Disorders: Yes - Atrial fib, [place] x 2 - - Stents placed Hx Congestive Heart Failure: No Hx Pacemaker: No Hx Hypertension: Yes Hx Thyroid Disease: No Hx Diabetes: Yes Hx Gastroesophageal Reflux: Yes Hx Renal Disease: No Hx Cancer: No Hx of HIV: No Hx Hepatitis C: No Hx MRSA: No Surgical History: appendectomy - Vaccination History Hx Tetanus, Diphtheria Vaccination: No Hx Influenza Vaccination: No Hx Pneumococcal Vaccination: Yes - Social History Hx Tobacco Use: Yes Hx Chewing Tobacco Use: No Hx Alcohol Use: Yes Hx Substance Use: No Hx Substance Use Treatment: No Hx Depression: No Hx Physical Abuse: No Hx Emotional Abuse: No Hx Suspected Abuse: No - Female History Patient : No Family Medical History - Family History Mother Family History: No Known Living Status: Age at (years of age): 83 Cause of : lack of will to thrive Hx Family Hypertension: Yes - parents Hx Cardiac Disease: Yes - dad Hx Family;Other: dad-PARKINSONS DISEASE Physical Exam - Physical Exam General Appearance: Alert, Comfortable, No apparent distress Eyes, Ears, Nose, Throat Exam: PERRL/EOMI Cardiovascular/Chest: normal peripheral pulses, regular rate, rhythm, no edema Respiratory: chest non-tender, lungs clear, normal breath sounds Extremity: other - 3.5 cm laceration to left little finger, 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 He asked for Rocephin and Bactrim to be started and then call in am to get follow up . Patient and family is well known to him. Spoke to patient and has taken cephalosporins before and other type of cillins with no difficulty. Just PCN causes reaction per patient. - Results/Orders Results/Orders: Patient Name: LISANDRO GREEN Gender: Male Date of : 1950 Referring Physician: ALLISON HEADLEY Organization: [facility] Accession Number: [id number] Requested Date: January 26, 2019 18:58 Report Status: Final Requested Procedure: 1 Procedure Description: Fingers,Left Modality: CR Findings Reporting MD: Luisa Pierce Fellow MD: Not available Dictation Time: Data Warehousing Engineer: Not available Insole And Outsole Preparer Date: EXAM DESCRIPTION: Fingers,Left CLINICAL HISTORY: 68 years Male trauma COMPARISON: None TECHNIQUE: Three images of the left fifth finger were obtained. Proximal aspect middle phalanx fourth finger obscured on lateral projection by overlying fingers. FINDINGS: Fracture dorsal aspect distal head middle phalanx fifth finger. Mild bony demineralization. No erosive or lytic lesions seen. IMPRESSION: Suspected nondisplaced fracture distal head middle phalanx fifth finger. Limited evaluation proximal aspect middle phalanx fifth finger on lateral projection. Procedures - Laceration/Wound Repair Left Finger Wound Length (cm): 3.5 Wound's Depth, Shape: superficial Wound Explored: clean Irrigated w/ Saline (cc's): 250 Betadine Prep?: Yes Anesthesia: 1% Lidocaine Volume Anesthetic (cc's): 3 - ring block with 1.5 cc Wound Debrided: minimal Wound Repaired With: sutures Suture Size/Type: 4:0, nylon Number of Sutures: 6 Layer Closure?: No Departure - Departure Clinical Impression: Laceration Fracture, finger, distal phalanx Qualifiers: Encounter type: initial encounter Finger: little finger Fracture type: open Fracture alignment: nondisplaced Laterality: left Qualified Code(s): S62.667B - Nondisplaced fracture of distal phalanx of left little finger, initial encounter for open fracture Disposition: Discharge to Home or Self Care Condition: Good Departure Forms: ED Discharge - Pt. Copy, Patient Portal Self Enrollment Instructions: DI for Laceration Repair Diet: regular diet Referrals: Garrick Clarke III, MD [Primary Care Provider] - 1-2 Weeks Prescriptions: Sulfa/Trimeth 800/160 (Ds) Tab [Bactrim DS] 1 tablet PO BID #20 tab Home Medications: Ambulatory Orders Aspirin [Baby Aspirin] 325 mg PO BID 10/03/14 Atorvastatin Calcium [Lipitor] 80 mg PO BEDTIME 10/03/14 Metformin HCl [Metformin Hydrochloride] 500 mg PO DAILY 06/18/16 Apixaban [Eliquis] 5 mg PO BID 10/02/16 Amiodarone HCl 200 mg PO BID 10/26/17 diltiaZEM HCL CD [Cardizem Cd] 180 mg PO BID 10/26/17 Tamsulosin HCl [Flomax] 0.4 mg PO DAILY 12/27/17 Sulfa/Trimeth 800/160 (Ds) Tab [Bactrim DS] 1 tablet PO BID #20 tab 01/26/19 Additional Instructions: follow up for wound check in 3 days and suture removal in 10. Return to Er for redness, fever >100.5, or pus from wound. clean BID with warm soapy water and pat dry. Leave bandage on for 24 hours. Call Ortho in am for follow up appointment.
--- NOTE | 2019-01-26 19:41 | RAD ---
EXAM DESCRIPTION: Fingers,Left CLINICAL HISTORY: 68 years Male trauma COMPARISON: None TECHNIQUE: Three images of the left fifth finger were obtained. Proximal aspect middle phalanx fourth finger obscured on lateral projection by overlying fingers. FINDINGS: Fracture dorsal aspect distal head middle phalanx fifth finger. Mild bony demineralization. No erosive or lytic lesions seen. IMPRESSION: Suspected nondisplaced fracture distal head middle phalanx fifth finger. Limited evaluation proximal aspect middle phalanx fifth finger on lateral projection. Electronically signed by: Luisa Pierce MD 01/26/2019 7:39 PM CDT
[2019-01-26] MEDS ORDERED: cefTRIAXone SODIUM 1 GM VIAL IM ONE (20:05)
[2019-01-26] MEDS ORDERED: LIDOCAINE 1% 2 ML VIAL INJ ONE (20:09)
[2019-01-26 20:39] VITALS: BP 145/72; TEMP 98.4; O2SAT 98
== END 2019-01-26 20:38 | disposition home or self-care (01) ==
LOC: ER 17:46
DX: S62.667B Nondisplaced fracture of distal phalanx of left little finger, initial encounter for open fracture (principal); I48.91 Unspecified atrial fibrillation; I25.2 Old myocardial infarction; I25.10 Atherosclerotic heart disease of native coronary artery without angina pectoris; I10 Essential (primary) hypertension; E11.9 Type 2 diabetes mellitus without complications; K21.9 Gastro-esophageal reflux disease without esophagitis; Z95.5 Presence of coronary angioplasty implant and graft; Z79.01 Long term (current) use of anticoagulants; Z79.82 Long term (current) use of aspirin; Z79.84 Long term (current) use of oral hypoglycemic drugs; Z79.899 Other long term (current) drug therapy; Z88.0 Allergy status to penicillin; Z87.891 Personal history of nicotine dependence; W29.3XXA Contact with powered garden and outdoor hand tools and machinery, initial encounter; Y92.9 Unspecified place or not applicable
CPT/HCPCS: 73140; 90471; 90715; J0696